=== PATIENT | female | born 1970 | race Caucasian/White ===

== ENCOUNTER → 2016-12-17 | Outpatient (CLI) | payer OTHER ==
[~2016-12-17] MED LIST: HYDR-5688 PO; IBUP-103 PO; OPTIRAY 320 IV PRN; OXYC1TAB3 PO; PENI-82 PO; RQP/2 PO; ZLF/100 PO
--- NOTE | 2016-12-17 10:56 | DIAGNOSTIC IMAGING REPORT ---
CT SCAN OF THE FACIAL BONES WITH IV CONTRAST CLINICAL HISTORY: Right jaw pain and swelling. Recent dental work. COMPARISON STUDY: CT of the brain dated 05/20/2012. TECHNIQUE: High-resolution CT scan of the facial bones is performed following the IV administration of 93 cc of Optiray 320. Images are reviewed in the axial, sagittal, and coronal planes. IV contrast was administered without complication. CT DOSE: 598.82 mGycm FINDINGS: The skeletal structures are well mineralized. There is no evidence of facial bone fracture. The bony orbits are intact and the orbital contents are within normal limits. The zygomatic arches, nasal bones, and pterygoid plates are preserved. The maxilla and mandible are intact. There are no layering blood products within the paranasal sinuses. The sinuses and mastoids are clear. The visualized calvarium and upper cervical spine are maintained. Partially imaged brain parenchyma is within normal limits. No significant periodontal disease is identified. The overlying soft tissues are within normal limits. No organized fluid collection is seen indicate abscess. No cervical lymphadenopathy is identified. IMPRESSION: 1. There is no evidence of facial bone fracture. 2. No significant periodontal disease is identified. 3. The overlying soft tissues are within normal limits. No organized fluid collection is identified to suggest abscess. Electronically signed by: Matias Solano M.D. 12/17/2016 10:54 AM Dictated Date/Time: 12/17/2016 10:41 AM
[2016-12-17 11:33] LABS: BASO % 0.5 %; BASO ABS # 0.04 K/uL (0-0.2); COMPLETE YES; EOS % 11.8 %; IG% 0.5 %; LYMPH % 35.3 %; LYMPH ABS # 3.04 K/uL (1.2-3.4); MEAN CELL VOLUME 84.8 fL (80-100); MEAN CORPUSCULAR HEMOGLOBIN 28.3 pg (25-34); MEAN CORPUSCULAR HGB CONC 33.3 g/dl (32-36); MEAN PLATELET VOLUME 9.5 fL (7.4-10.4); MONO % 7.8 %; NEUT % 44.1 %; PLATELET COUNT 366 K/uL (130-400); WHITE BLOOD COUNT 8.62 K/uL (4.8-10.8)
[2016-12-17 12:01] LABS: BLOOD UREA NITROGEN 19 mg/dl (7-18); BUN/CREATININE RATIO 23.8 (10-20); CALCIUM 8.5 mg/dl (8.5-10.1); CARBON DIOXIDE 26 mmol/L (21-32); CHLORIDE 104 mmol/L (98-107); CREATININE 0.78 mg/dl (0.60-1.20); GLUCOSE 98 mg/dl (70-99); SODIUM 138 mmol/L (136-145)
== END | disposition home or self-care (01) ==
LOC: C.CTS 09:04
PROVIDERS: ATTEND Family Medicine
DX: R22.0 Localized swelling, mass and lump, head (principal); R68.84 Jaw pain

== ENCOUNTER 2017-12-04 17:15 | Emergency (ER) | payer OTHER ==
[~2017-12-04] VITALS: Ht 165.1 cm; Wt 95.3 kg
[~2017-12-04 17:15] MED LIST changes: +GLC500 PO; -HYDR-5688 PO; -IBUP-103 PO; -OPTIRAY 320 IV PRN; -PENI-82 PO; -ZLF/100 PO
[2017-12-04 17:24] VITALS: TEMP 36.9; Ht 165.1 cm; Wt 95.3 kg
[2017-12-04] MEDS ORDERED: OXYCODONE HCL IR 5 MG TAB (IMMEDIATE RELEASE) PO STA (17:35)
[2017-12-04] MEDS ORDERED: ROPI4TAB4 PO (17:51)
[2017-12-04] MEDS ORDERED: SERT50TA PO (17:52)
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
[2017-12-04] MEDS ORDERED: OXYC1TAB3 PO (18:50)
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
[2017-12-04] MEDS ORDERED: OXYCODONE IR HOME PACK PO STA (18:51)
[2017-12-04 19:14] VITALS: BP 126/86; PULSE 65; O2SAT 100
== END 2017-12-04 19:16 | disposition home or self-care (01) ==
LOC: C.EDB 17:15 → C.EDD 19:16
DX: M25.512 Pain in left shoulder (principal); F31.9 Bipolar disorder, unspecified; M50.20 Other cervical disc displacement, unspecified cervical region; F32.9 Major depressive disorder, single episode, unspecified; M54.5 Low back pain; M54.6 Pain in thoracic spine; G25.81 Restless legs syndrome; Z79.84 Long term (current) use of oral hypoglycemic drugs

== ENCOUNTER 2024-02-16 16:32 | Inpatient (IN) ==
[2024-02-16 17:29] LABS: Basophils # (auto) 0.06 K/uL (0.00-0.20); Basophils % (auto) 0.6 %; Eosinophils # (auto) 0.63 K/uL (0.00-0.50); Eosinophils % (auto) 6.6 %; Hematocrit (blood only) 41.6 % (37.0-47.0); Hemoglobin 13.6 g/dl (12.0-16.0); Immature Granulocytes # (auto) 0.03 K/uL (0.01-0.20); Immature Granulocytes % (auto) 0.3 %; Lymphocytes # (auto) 2.96 K/uL (1.20-3.40); Mean Corpuscular Hemoglobin 27.1 pg (25.0-34.0); Mean Corpuscular Hgb Conc 32.7 g/dL (32.0-36.0); Mean Platelet Volume 9.7 fL (9.4-12.4); Monocytes # (auto) 0.57 K/uL (0.11-0.59); Neutrophils # (auto) 5.29 K/uL (1.40-6.50); Neutrophils % (auto) 55.5 %; Platelet Count 426 K/uL (130-400); RDW Coefficient of Variation 14.3 % (11.5-14.5); RDW Standard Deviation 43.3 fL (36.4-46.3); Red Blood Count 5.01 M/uL (4.20-5.40); White Blood Count 9.54 K/ul (4.8-10.8)
[2024-02-16 17:39] LABS: Albumin Globulin Ratio 1.4 (0.9-2); Albumin Level 4.1 gm/dl (3.4-5.0); BUN Creatinine Ratio 24.4 (10-20); Bilirubin,Total 0.4 mg/dl (0.2-1.0); Calcium 8.9 mg/dl (8.6-10.3); Creatinine Clr Calc Pharmacy 81.6 ml/min; Est GFR (African American) 88.1 ml/min; Est GFR (Non-African American) 76.1 ml/min; Potassium 4.2 mmol/L (3.5-5.1); Pregnancy Test, Serum Negative (Negative); Total Protein 7.1 gm/dl (6.0-8.3)
[2024-02-16] MEDS: ONDANSETRON INJ 2 MG/ML 2 ML VIAL IV STA ×2 (18:00→19:37)
--- NOTE | 2024-02-16 18:11 | Emergency Department Note ---
Impression & Plan Epigastric abdominal pain, Acute pancreatitis ED Provider Note Provider: Nick Pappas MD DATE OF SERVICE: 02/16/2024 CHIEF COMPLAINT: Abdominal pain, nausea HISTORY OF PRESENT ILLNESS: Patient is a 53-year-old female history of UTI/interstitial cystitis. Reports she has been having upper abdominal pain and flank and back pain with nausea over the past 3 weeks. Worsened today. Has had some diarrhea but subsided a couple days ago. Did take Toradol and Zofran earlier. 9 out of 10 pain. Not really keeping anything down. Seen in the office today and referred here. Feels very thirsty but has not passed out or fallen. No history of pancreatitis in the past. Received some IV Zofran in triage and this has been helpful. States her upper abdominal pain straight through to her back is sharp and feels like someone sitting with her back. 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 Head: normocephalic and atraumatic EYES: No injection, discharge or icterus. NECK: Trachea midline. ENT: Mucous membranes pink and somewhat tacky LUNGS: Airway patent. No retractions. Breath sounds clear HEART: Regular rate and rhythm. No chest wall tenderness ABDOMEN: Soft mild diffuse upper abdominal tenderness. SKIN: Acyanotic, warm, dry, without rashes EXTREMITIES: Without swelling, tenderness or deformity NEUROLOGICAL: No focal deficits. No aphasia. No facial droop or slurred speech. Ambulatory. EK beats. Normal sinus rhythm. No PVC or PAC. No acute ST segment elevation or depression with a QTc of 427. CONTINUOUS CARDIAC MONITORING: was ordered and showed a heart rate of 60s to 70s bpm in normal sinus rhythm Patient's laboratory studies and imaging reviewed. Differential includes Appendicitis, ovarian cyst, ovarian torsion, ectopic , TOA, PID, infections, diverticulitis, UTI, obstruction, mesenteric ischemia, aortic pathology, inflammatory bowel disease, renal colic, PUD, pancreatitis, biliary pathology, hernia, volvulus, constipation, as well as other pathologies. IMPRESSION/MEDICAL DECISION MAKING: Pain in the upper abdomen straight through the back seem consistent likely with pancreatitis. No trauma history of syncope. Will complete EKG troponin but less likely be cardiac in nature. Significant nausea and vomiting but diarrhea previously found his is resolved. Stellamarlys here from triage is helping. Given some IV fluids here as well as morphine for pain. No history of pancreatitis in the past. Lipase somewhat elevated on prior evaluation here on Tuesday. Sent from the office today. Repeat blood work obtained today without significant cytosis or anemia. No severe electrolyte abnormality or signs of renal dysfunction. No significant LFT or bilirubin abnormalities but lipase is elevated more today at 219. Negative testing. Will send for CT abdomen pelvis given the severity of her pain to exclude any significant evolution or other development of intra-abdominal pathology. CT report from radiology reviewed without significant acute findings noted. Patient will likely require hospitalization given the severity of her symptoms and failure of outpatient treatment over the past week. Seems likely pancreatitis no other acute processes are noted at this time. Hospitalist contacted. DIAGNOSIS: Acute pancreatitis, epigastric abdominal pain DISPOSITION: Hospitalist will evaluate Patient was agreeable with this plan. Past Med/Surg History Medical History (Updated 02/16/24 @ 19:59 by Nick Pappas M.D.) Kidney stone Anxiety Depression Urinary tract infection Surgical History History of tonsillectomy H/O spinal fusion History of nephrolithotomy with removal of calculi Family History Mother Cancer Ovarian Social History Smoking Status: Former smoker Hx Alcohol Use: Yes Hx Substance Use: Yes Preferred Language: [place]i Communication Ability: Effective Visual Impairment: No Limitations Hearing Ability: Normal Beliefs That Will Affect Care: None marital status: Current Living Situation: Spouse current occupational status: employed current occupation: [employer] Feels Safe at Home: Yes Diet: regular Allergies Allergies Allergy/AdvReac Type Severity Reaction Status Date / Time adhesive Allergy Intermediate Hives Verified 02/16/24 18:10 tramadol Allergy Intermediate BECAME Verified 02/16/24 18:10 VERY AGITATED zolpidem AdvReac Unknown "unconsciou Verified 02/16/24 18:10 s" Home Meds Home Medications Medication Instructions Recorded Confirmed ropinirole 2 mg tablet 4 mg PO HS 02/16/19 02/16/24 sertraline 100 mg tablet 200 mg PO QAM 02/16/19 02/16/24 dicyclomine 10 mg capsule 10 mg PO QID PRN Abdominal Pain 02/16/24 02/16/24 ketorolac 10 mg tablet 10 mg PO QID PRN Moderate Pain 02/16/24 02/16/24 (Scale Score 5-6) Previous Rx's Medication Instructions Recorded albuterol sulfate 90 mcg/actuation 2 inh inhalation Q4H PRN cough 11/28/23 aerosol inhaler #8.5 grams oxycodone 5 mg tablet 5 mg PO Q6H PRN pain #8 tabs 02/10/24 promethazine 25 mg tablet 25 mg PO Q6H PRN nausea and 02/10/24 vomiting #12 tabs Results & Data (ED) Vital Signs Vital Signs - 24 hr 02/16/24 16:43 02/16/24 17:57 02/16/24 18:58 Temperature 36.9 C Temperature Source Temporal Artery Scan Pulse Rate 79 71 Pulse Rate [Apical] 74 Respiratory Rate 19 18 Respiratory Effort / Characteristics Non-Labored Spontaneous Respiratory Depth Normal Respiratory Pattern Regular Blood Pressure 158/76 H Blood Pressure [Left Arm] 154/75 H Blood Pressure Mean 103 Blood Pressure Mean [Left Arm] 101 Blood Pressure Position [Left Arm] Lying Pulse Oximetry 97 98 Oxygen Delivery Method Room Air Room Air Sepsis Recent Fever Within 48 Hours No Sepsis New/Unexplained Change in Mental Status N/A Sepsis Action Taken by Nursing No Action Required 02/16/24 19:36 Temperature Temperature Source Pulse Rate Pulse Rate [Apical] 69 Respiratory Rate 18 Respiratory Effort / Characteristics Non-Labored Spontaneous Respiratory Depth Normal Respiratory Pattern Regular Blood Pressure Blood Pressure [Left Arm] 124/80 Blood Pressure Mean Blood Pressure Mean [Left Arm] 94 Blood Pressure Position [Left Arm] Lying Pulse Oximetry 95 Oxygen Delivery Method Room Air Sepsis Recent Fever Within 48 Hours Sepsis New/Unexplained Change in Mental Status Sepsis Action Taken by Nursing Laboratory Data 02/16/24 16:53 02/16/24 16:53 Lab Results 02/16/24 Range/Units 16:53 WBC 9.54 (4.8-10.8) K/ul RBC 5.01 (4.20-5.40) M/uL Hgb 13.6 (12.0-16.0) g/dl Hct 41.6 (37.0-47.0) % MCV 83.0 (80.0-100.0) fL MCH 27.1 (25.0-34.0) pg MCHC 32.7 (32.0-36.0) g/dL RDW Std Deviation 43.3 (36.4-46.3) fL RDW Coeff of Mamadou 14.3 (11.5-14.5) % Plt Count 426 H (130-400) K/uL MPV 9.7 (9.4-12.4) fL Immature Gran % (Auto) 0.3 % Neut % (Auto) 55.5 % Lymph % (Auto) 31.0 % [place] % (Auto) 6.0 % Eos % (Auto) 6.6 % Baso % (Auto) 0.6 % Neut # (Auto) 5.29 (1.40-6.50) K/uL Lymph # (Auto) 2.96 (1.20-3.40) K/uL [place] # (Auto) 0.57 (0.11-0.59) K/uL Eos # (Auto) 0.63 H (0.00-0.50) K/uL Baso # (Auto) 0.06 (0.00-0.20) K/uL Immature Gran # (Auto) 0.03 (0.01-0.20) K/uL Sodium 141 (136-145) mmol/L Potassium 4.2 (3.5-5.1) mmol/L Chloride 108 H (98-107) mmol/L Carbon Dioxide 26 (21-32) mmol/L Anion Gap 7 (3-11) BUN 21 (6-23) mg/dl Creatinine 0.86 (0.6-1.2) mg/dl Est Cr Clr Drug Dosing 81.6 ml/min Est GFR ( Amer) 88.1 ml/min Est GFR (Non-Af Amer) 76.1 ml/min BUN/Creatinine Ratio 24.4 H (10-20) Glucose 114 H (70-99(Fasting)) mg/dl Calcium 8.9 (8.6-10.3) mg/dl Total Bilirubin 0.4 (0.2-1.0) mg/dl AST 17 (13-39) U/L ALT 21 (7-52) U/L Alkaline Phosphatase 73 (34-104) U/L Troponin I High Sens 3.6 (0-14) pg/ml Total Protein 7.1 (6.0-8.3) gm/dl Albumin 4.1 (3.4-5.0) gm/dl Globulin 3.0 (2.5-4.0) gm/dl Albumin/Globulin Ratio 1.4 (0.9-2) Lipase 219 H (11-82) U/L HCG, Qual Negative (Negative) Administered Medications Discontinued Medications Lactated Ringer's (Lr) 1,000 mls @ 999 mls/hr IV .Q1H1M ONE Stop: 02/16/24 19:16 Last Admin: 02/16/24 19:37 Dose: 999 mls/hr Documented By: ROSSANA Sodium Chloride (Nss) 1,000 mls @ 999 mls/hr IV .Q1H1M ONE Stop: 02/16/24 19:16 Last Infusion: 02/16/24 19:31 Dose: Infused Documented By: Admin: 02/16/24 18:22 Dose: 999 mls/hr Documented By: ROSSANA Ioversol (Optiray 320 100ml) 90 ml IV ONCE ONE Stop: 02/16/24 19:19 Last Admin: 02/16/24 19:18 Dose: 90 ml Documented By: FAITH Morphine Sulfate (Morphine Sulfate 4 Mg/Ml 1 Ml Carp\\Vial) 4 mg IV NOW STA Stop: 02/16/24 18:18 Last Admin: 02/16/24 18:20 Dose: 4 mg Documented By: ROSSANA Morphine Sulfate (Morphine Sulfate 4 Mg/Ml 1 Ml Carp\\Vial) 4 mg IV NOW STA Stop: 02/16/24 19:34 Last Admin: 02/16/24 19:37 Dose: 4 mg Documented By: ROSSANA Ondansetron HCl (Ondansetron Inj 2 Mg/Ml 2 Ml Vial) 4 mg IV NOW STA Stop: 02/16/24 16:49 Last Admin: 02/16/24 18:00 Dose: 4 mg Documented By: NAVJOTK Ondansetron HCl (Ondansetron Inj 2 Mg/Ml 2 Ml Vial) 4 mg IV NOW STA Stop: 02/16/24 19:34 Last Admin: 02/16/24 19:37 Dose: 4 mg Documented By: ROSSANA Imaging Data Radiologist's Impression: Abdomen/Pelvis CT 02/16/24 18:16 Exam(s): CT ABDOMEN + PELVIS With Contrast IV Amt: 90 cc opti 320 EXAM: CT Abdomen and Pelvis With Intravenous Contrast CLINICAL HISTORY: Upper pain abd to back, elevated lipase. TECHNIQUE: Axial computed tomography images of the abdomen and pelvis with intravenous contrast. CTDI is 26.84 mGy and DLP is 1470.67 mGy-cm. Automated exposure control was utilized for the study. A dose lowering technique was utilized adhering to the principles of ALARA. CONTRAST: Patient received 90 cc opti 320 of IV contrast COMPARISON: CT abdomen and pelvis 02/10/2024 FINDINGS: Lung bases: Unremarkable. No mass. No consolidation. ABDOMEN: Liver: There is a simple appearing hepatic cyst, no follow-up is needed. Gallbladder and bile ducts: Unremarkable. No calcified stones. No ductal dilation. Pancreas: Unremarkable. No ductal dilation. No CT evidence of acute pancreatitis. Spleen: Unremarkable. No splenomegaly. Adrenals: Unremarkable. No mass. Kidneys and ureters: Unremarkable. No solid mass. No hydronephrosis. Stomach and bowel: Unremarkable. No obstruction. No mucosal thickening. PELVIS: Appendix: No findings to suggest acute appendicitis. Bladder: Unremarkable. No mass. Reproductive: An IUD is noted within an otherwise unremarkable uterus. ABDOMEN and PELVIS: Intraperitoneal space: Unremarkable. No free air. No significant fluid collection. Bones/joints: There are degenerative changes of the spine. No acute fracture. No dislocation. Soft tissues: Unremarkable. Vasculature: Unremarkable. No abdominal aortic aneurysm. Lymph nodes: Unremarkable. No enlarged lymph nodes. IMPRESSION: No CT evidence of acute pancreatitis. No acute finding. Electronically signed by: Myranda Krishnamurthy MD 02/16/24 19:53 PM Discharge Plan Visit Data Chief Complaint: Abdominal Pain Stated Complaint: ABD PAIN ED Provider: Nick Pappas Discharge Problem: Epigastric abdominal pain, Acute pancreatitis Patient Disposition: Being Evaluated by Hospitalist Forms Stand Alone Forms: My [employer] Prescriptions Prescriptions: No Action sertraline 100 mg Tablet 200 mg PO QAM ropinirole 2 mg tablet 4 mg PO HS albuterol sulfate 90 mcg/actuation HFA aerosol inhaler 2 inh inhalation Q4H PRN (Reason: cough) Qty: 8.5 1RF ketorolac 10 mg tablet 10 mg PO QID PRN (Reason: Moderate Pain (Scale Score 5-6)) dicyclomine 10 mg capsule 10 mg PO QID PRN (Reason: Abdominal Pain) promethazine 25 mg tablet 25 mg PO Q6H PRN (Reason: nausea and vomiting) Qty: 12 0RF oxycodone 5 mg tablet 5 mg PO Q6H PRN (Reason: pain) Qty: 8 0RF Referrals Referrals: Anupama Alba PA-C [Primary Care Provider] -
[2024-02-16] MEDS: MoRPHine SULFATE 4 MG/ML 1 ML CARP\\VIAL IV STA ×2 (18:20→19:37)
[2024-02-16] MEDS: SODIUM CHLORIDE 0.9% 1,000 ML IV ONE (18:22)
[2024-02-16 18:47] LABS: Troponin I High Sensitivity 3.6 pg/ml (0-14)
[2024-02-16] MEDS: OPTIRAY 320 100ml IV ONE (19:18)
[2024-02-16] MEDS: LACTATED RINGER'S 1,000 ML IV ONE ×2 (19:37→21:38)
--- NOTE | 2024-02-16 19:54 | CT Scan Report ---
Exam(s): CT ABDOMEN + PELVIS With Contrast IV Amt: 90 cc opti 320 EXAM: CT Abdomen and Pelvis With Intravenous Contrast CLINICAL HISTORY: Upper pain abd to back, elevated lipase. TECHNIQUE: Axial computed tomography images of the abdomen and pelvis with intravenous contrast. CTDI is 26.84 mGy and DLP is 1470.67 mGy-cm. Automated exposure control was utilized for the study. A dose lowering technique was utilized adhering to the principles of ALARA. CONTRAST: Patient received 90 cc opti 320 of IV contrast COMPARISON: CT abdomen and pelvis 02/10/2024 FINDINGS: Lung bases: Unremarkable. No mass. No consolidation. ABDOMEN: Liver: There is a simple appearing hepatic cyst, no follow-up is needed. Gallbladder and bile ducts: Unremarkable. No calcified stones. No ductal dilation. Pancreas: Unremarkable. No ductal dilation. No CT evidence of acute pancreatitis. Spleen: Unremarkable. No splenomegaly. Adrenals: Unremarkable. No mass. Kidneys and ureters: Unremarkable. No solid mass. No hydronephrosis. Stomach and bowel: Unremarkable. No obstruction. No mucosal thickening. PELVIS: Appendix: No findings to suggest acute appendicitis. Bladder: Unremarkable. No mass. Reproductive: An IUD is noted within an otherwise unremarkable uterus. ABDOMEN and PELVIS: Intraperitoneal space: Unremarkable. No free air. No significant fluid collection. Bones/joints: There are degenerative changes of the spine. No acute fracture. No dislocation. Soft tissues: Unremarkable. Vasculature: Unremarkable. No abdominal aortic aneurysm. Lymph nodes: Unremarkable. No enlarged lymph nodes. IMPRESSION: No CT evidence of acute pancreatitis. No acute finding. Electronically signed by: Myranda Krishnamurthy MD 02/16/24 19:53 PM
[2024-02-16] MEDS ORDERED: MoRPHine SULFATE 4 MG/ML 1 ML CARP\\VIAL IV PRN (20:38)
[2024-02-16] MEDS: oxyCODONE HCL IR 5 MG TAB (IMMEDIATE RELEASE) PO PRN (21:38)
[2024-02-16 22:33] LABS: Appearance Urine Clear (Clear); Bacteria Urine Automated Negative (Negative); Bilirubin Urine Negative (Negative); Blood Urine Negative (Negative); Color Urine Yellow; Epithelial Cell Urine Auto >30 /lpf (0-5); Glucose Urine UA Negative (Negative); Ketones Urine Negative (Negative); Leukocyte Esterase Urine Trace (Negative); Nitrite Urine Negative (Negative); Protein Urine Negative (Negative); RBC Urine Automated 0-4 /hpf (0-4); Specific Gravity Urine > 1.045 (1.000-1.030); Urobilinogen Urine Negative (Negative)
--- NOTE | 2024-02-16 22:49 | History & Physical Report ---
Date of Service February 16, 2024 Assessment & Plan (1) Abdominal pain: Plan: ? Protracted pancreatitis episode No obvious precipitants for now. Patient nontoxic. hx interstitial cystitis anxiety/mood disorder, stable Hyperglycemia rule out DM past tobacco abuse OBS GMF Analgesia Bowel rest for now GI consult re: persistent abdominal pain with lipase elevation Check hemoglobin A1c DVT prophylaxis with Lovenox subcu Full code Text document was generated using [employer] voice recognition software. It may contain grammatical or spelling errors. Kindly contact undersigned for clarification of any documentation item in question. History of Present Illness Chief Complaint: Worsening abdominal pain Primary Care Provider: Anupama Alba PA-C History obtained from patient and records. Medical history significant for interstitial cystitis, urolithiasis, anxiety/mood disorder, past tobacco abuse. 3 weeks ago, patient had achy epigastric pain associated with nausea vomiting, watery diarrhea symptoms. No fever, no chills. No dysuria symptoms. No recent out-of-town travel or antibiotics. Denies EtOH or fatty food intake. Not responsive to antacid. Patient seen at PCPs office 2 weeks ago. Lipase noted to be elevated on outpatient blood work. Stool workup negative. Patient was told she could have pancreatitis. Patient consulted ER 2 weeks ago for worsening symptoms. Normal pancreas, questionable mild bladder wall thickening on CT imaging. Minimal lipase elevation on blood work. Patient discharged home. Worsening achy abdominal pain following ER visit. Patient sent back to ER after seeing PCP at office today. Medical History as above Surgical History : Tonsillectomy, back surgery, urologic procedures D&C, uvulectomy, appendectomy, clavicle surgery Family History : Ovarian cancer, IBD, ALS Personal/Social history : Past tobacco abuse, occasional EtOH intake, marijuana store employee Allergies Allergy/AdvReac Type Severity Reaction Status Date / Time adhesive Allergy Intermediate Hives Verified 02/16/24 18:10 tramadol Allergy Intermediate BECAME Verified 02/16/24 18:10 VERY AGITATED zolpidem AdvReac Unknown "unconsciou Verified 02/16/24 18:10 s" Home Medications Medication Instructions Recorded Confirmed Type ropinirole 2 mg tablet 4 mg PO HS 02/16/19 02/16/24 History sertraline 100 mg tablet 200 mg PO QAM 02/16/19 02/16/24 History albuterol sulfate 90 mcg/actuation 2 inh inhalation Q4H PRN cough 11/28/23 02/16/24 Rx aerosol inhaler #8.5 grams oxycodone 5 mg tablet 5 mg PO Q6H PRN pain #8 tabs 02/10/24 02/16/24 Rx promethazine 25 mg tablet 25 mg PO Q6H PRN nausea and 02/10/24 02/16/24 Rx vomiting #12 tabs dicyclomine 10 mg capsule 10 mg PO QID PRN Abdominal Pain 02/16/24 02/16/24 History ketorolac 10 mg tablet 10 mg PO QID PRN Moderate Pain 02/16/24 02/16/24 History (Scale Score 5-6) Past Med/Surg History Medical History (Updated 02/16/24 @ 19:59 by Nick Pappas M.D.) Kidney stone Anxiety Depression Urinary tract infection Surgical History History of tonsillectomy H/O spinal fusion History of nephrolithotomy with removal of calculi Family History Mother Cancer Ovarian Social History Smoking Status: Never smoker Hx Alcohol Use: Yes Hx Substance Use: Yes Last Used Substance: Just Prior to Arrival Preferred Language: Bulgarian Communication Ability: Effective Visual Impairment: No Limitations Hearing Ability: Normal Probation Officer Required: No Beliefs That Will Affect Care: None marital status: Current Living Situation: Spouse current occupational status: employed current occupation: Finance Business Manager Other Information That Helps Us Care for You: No Feels Safe at Home: Yes Safety Concerns: Feels Safe At This Time Diet: regular Assistive Devices: None Review of Systems Review of Systems: As per HPI, all other systems reviewed and negative Physical Exam Physical Exam: GENERAL: Slightly uncomfortable, obese, no respiratory distress SKIN: Normal color, warm HEENT: [place] palpebral conjunctivae, no ptosis, dry buccal mucosa NECK : Supple, no tenderness CHEST : CTA, no tenderness HEART : RRR, no obvious murmurs ABDOMEN: Some distention, epigastric tenderness EXTREMITIES : Minimal LE swelling, no LE tenderness, no other conspicuous deformities noted NEUROLOGIC : Coherent, no facial asymmetry, no other gross focality Results & Data Results & Data Vital Signs (Past 12 Hours) Vital Signs Temp Pulse Pulse Resp BP BP Pulse Ox 02/16/24 22:39 64 18 116/63 94 02/16/24 22:01 65 18 120/79 93 02/16/24 19:36 69 18 124/80 95 02/16/24 18:58 71 02/16/24 17:57 74 18 154/75 H 98 02/16/24 16:43 36.9 C 79 19 158/76 H 97 O2 Del Method 02/16/24 22:39 Room Air 02/16/24 22:01 Room Air 02/16/24 19:36 Room Air 02/16/24 18:58 02/16/24 17:57 Room Air 02/16/24 16:43 Room Air Laboratory Results Laboratory Results WBC 9.54 K/ul (4.8-10.8) 02/16/24 16:53 RBC 5.01 M/uL (4.20-5.40) 02/16/24 16:53 Hgb 13.6 g/dl (12.0-16.0) 02/16/24 16:53 Hct 41.6 % (37.0-47.0) 02/16/24 16:53 MCV 83.0 fL (80.0-100.0) 02/16/24 16:53 MCH 27.1 pg (25.0-34.0) 02/16/24 16:53 MCHC 32.7 g/dL (32.0-36.0) 02/16/24 16:53 RDW Std Deviation 43.3 fL (36.4-46.3) 02/16/24 16:53 RDW Coeff of Mamadou 14.3 % (11.5-14.5) 02/16/24 16:53 Plt Count 426 K/uL (130-400) H 02/16/24 16:53 MPV 9.7 fL (9.4-12.4) 02/16/24 16:53 Immature Gran % (Auto) 0.3 % 02/16/24 16:53 Neut % (Auto) 55.5 % 02/16/24 16:53 Lymph % (Auto) 31.0 % 02/16/24 16:53 Trigg % (Auto) 6.0 % 02/16/24 16:53 Eos % (Auto) 6.6 % 02/16/24 16:53 Baso % (Auto) 0.6 % 02/16/24 16:53 Neut # (Auto) 5.29 K/uL (1.40-6.50) 02/16/24 16:53 Lymph # (Auto) 2.96 K/uL (1.20-3.40) 02/16/24 16:53 Trigg # (Auto) 0.57 K/uL (0.11-0.59) 02/16/24 16:53 Eos # (Auto) 0.63 K/uL (0.00-0.50) H 02/16/24 16:53 Baso # (Auto) 0.06 K/uL (0.00-0.20) 02/16/24 16:53 Immature Gran # (Auto) 0.03 K/uL (0.01-0.20) 02/16/24 16:53 Sodium 141 mmol/L (136-145) 02/16/24 16:53 Potassium 4.2 mmol/L (3.5-5.1) 02/16/24 16:53 Chloride 108 mmol/L (98-107) H 02/16/24 16:53 Carbon Dioxide 26 mmol/L (21-32) 02/16/24 16:53 Anion Gap 7 (3-11) 02/16/24 16:53 BUN 21 mg/dl (6-23) 02/16/24 16:53 Creatinine 0.86 mg/dl (0.6-1.2) 02/16/24 16:53 Est Cr Clr Drug Dosing 81.6 ml/min 02/16/24 16:53 Est GFR ( Amer) 88.1 ml/min 02/16/24 16:53 Est GFR (Non-Af Amer) 76.1 ml/min 02/16/24 16:53 BUN/Creatinine Ratio 24.4 (10-20) H 02/16/24 16:53 Glucose 114 mg/dl (70-99(Fasting)) H 02/16/24 16:53 Calcium 8.9 mg/dl (8.6-10.3) 02/16/24 16:53 Total Bilirubin 0.4 mg/dl (0.2-1.0) 02/16/24 16:53 AST 17 U/L (13-39) 02/16/24 16:53 ALT 21 U/L (7-52) 02/16/24 16:53 Alkaline Phosphatase 73 U/L (34-104) 02/16/24 16:53 Troponin I High Sens 3.6 pg/ml (0-14) 02/16/24 16:53 Total Protein 7.1 gm/dl (6.0-8.3) 02/16/24 16:53 Albumin 4.1 gm/dl (3.4-5.0) 02/16/24 16:53 Globulin 3.0 gm/dl (2.5-4.0) 02/16/24 16:53 Albumin/Globulin Ratio 1.4 (0.9-2) 02/16/24 16:53 Lipase 219 U/L (11-82) H 02/16/24 16:53 HCG, Qual Negative (Negative) 02/16/24 16:53 Urine Color Yellow 02/16/24 21:43 Urine Appearance Clear (Clear) 02/16/24 21:43 Urine pH 5.0 (4.5-7.5) 02/16/24 21:43 Ur Specific [place] > 1.045 (1.000-1.030) H 02/16/24 21:43 Urine Protein Negative (Negative) 02/16/24 21:43 Urine Glucose (UA) Negative (Negative) 02/16/24 21:43 Urine Ketones Negative (Negative) 02/16/24 21:43 Urine Blood Negative (Negative) 02/16/24 21:43 Urine Nitrite Negative (Negative) 02/16/24 21:43 Urine Bilirubin Negative (Negative) 02/16/24 21:43 Urine Urobilinogen Negative (Negative) 02/16/24 21:43 Ur Leukocyte Esterase Trace (Negative) H 02/16/24 21:43 Urine WBC (Auto) 5-10 /hpf (0-5) H 02/16/24 21:43 Urine RBC (Auto) 0-4 /hpf (0-4) 02/16/24 21:43 U Hyaline Cast (Auto) 1-5 /lpf (0-5) 02/16/24 21:43 U Epithel Cells (Auto) >30 /lpf (0-5) H 02/16/24 21:43 Urine Bacteria (Auto) Negative (Negative) 02/16/24 21:43 Impressions Abdomen/Pelvis CT 02/16/24 18:16 Exam(s): CT ABDOMEN + PELVIS With Contrast IV Amt: 90 cc opti 320 EXAM: CT Abdomen and Pelvis With Intravenous Contrast CLINICAL HISTORY: Upper pain abd to back, elevated lipase. TECHNIQUE: Axial computed tomography images of the abdomen and pelvis with intravenous contrast. CTDI is 26.84 mGy and DLP is 1470.67 mGy-cm. Automated exposure control was utilized for the study. A dose lowering technique was utilized adhering to the principles of ALARA. CONTRAST: Patient received 90 cc opti 320 of IV contrast COMPARISON: CT abdomen and pelvis 02/10/2024 FINDINGS: Lung bases: Unremarkable. No mass. No consolidation. ABDOMEN: Liver: There is a simple appearing hepatic cyst, no follow-up is needed. Gallbladder and bile ducts: Unremarkable. No calcified stones. No ductal dilation. Pancreas: Unremarkable. No ductal dilation. No CT evidence of acute pancreatitis. Spleen: Unremarkable. No splenomegaly. Adrenals: Unremarkable. No mass. Kidneys and ureters: Unremarkable. No solid mass. No hydronephrosis. Stomach and bowel: Unremarkable. No obstruction. No mucosal thickening. PELVIS: Appendix: No findings to suggest acute appendicitis. Bladder: Unremarkable. No mass. Reproductive: An IUD is noted within an otherwise unremarkable uterus. ABDOMEN and PELVIS: Intraperitoneal space: Unremarkable. No free air. No significant fluid collection. Bones/joints: There are degenerative changes of the spine. No acute fracture. No dislocation. Soft tissues: Unremarkable. Vasculature: Unremarkable. No abdominal aortic aneurysm. Lymph nodes: Unremarkable. No enlarged lymph nodes. IMPRESSION: No CT evidence of acute pancreatitis. No acute finding. Electronically signed by: Myranda Krishnamurthy MD 02/16/24 19:53 PM Gallbladder ultrasound: Possible mild diffuse fatty liver, otherwise unremarkable right upper quadrant ultrasound. Diagnostic Findings EKG as per my interpretation : Rate 65, NSR, normal axis, T wave abnormalities septal leads (1) Abdominal pain Abdominal location: upper abdomen, unspecified Qualified Code(s): R10.10 - Upper abdominal pain, unspecified
[2024-02-16] MEDS ORDERED: ACETAMINOPHEN 325 MG TAB PO PRN (22:51)
[2024-02-16] MEDS ORDERED: KETOROLAC TROMETHAMINE 15 MG/ML VIAL IV PRN (22:51)
[2024-02-16] MEDS ORDERED: LORazepam 0.5 MG TAB PO PRN (22:51)
--- NOTE | 2024-02-16 23:13 | Ultrasound Report ---
Exam(s): US GALLBLADDER EXAM: US Abdomen Limited, Gallbladder CLINICAL HISTORY: Reason for exam: abd pain. TECHNIQUE: Real-time ultrasound of the right upper quadrant with image documentation. COMPARISON: None. FINDINGS: Limitations: Exam is limited due to gas artifact in the bowel. Liver: There is mild diffuse increased echogenicity throughout the liver suggestive of fatty infiltration. The liver measures 16.09 cm. The main portal vein reveals hepatopedal flow. Gallbladder: Moody sign is indeterminate due to prior medication. The gallbladder wall measures 2.4 mm. No gallstones. Common bile duct: The common bile duct measures 4.3 mm. No stones. No dilation. Pancreas: The pancreas is obscured. Right kidney: The right kidney measures 9.5 cm. IMPRESSION: Possible mild diffuse fatty liver, otherwise unremarkable right upper quadrant ultrasound. Electronically signed by: Sheri Haji MD 02/16/24 23:11 PM
[2024-02-17] MEDS: PROMETHAZINE HCL 12.5 MG in SODIUM CHLORIDE 0.9% 50 ML IV PRN (00:20)
[2024-02-17] MEDS: KETOROLAC 30 MG/ML VIAL IV ONE (00:20)
[2024-02-17] MEDS: rOPINIRole HCL 2 MG TABLET PO SCH (00:34)
[2024-02-17] MEDS: LACTATED RINGER'S 1,000 ML IV SCH (02:57)
[2024-02-17] MEDS: ONDANSETRON INJ 2 MG/ML 2 ML VIAL IV STA ×3 (03:57→22:20)
[2024-02-17] MEDS: MoRPHine SULFATE 2 MG/ML CARP IV PRN (03:57)
[2024-02-17] MEDS ORDERED: ACETAMINOPHEN 500 MG TAB PO PRN (05:20)
[2024-02-17 06:26] LABS: Basophils # (auto) 0.04 K/uL (0.00-0.20); Basophils % (auto) 0.7 %; Eosinophils # (auto) 0.65 K/uL (0.00-0.50); Eosinophils % (auto) 11.2 %; Hemoglobin 11.2 g/dl (12.0-16.0); Immature Granulocytes # (auto) 0.01 K/uL (0.01-0.20); Immature Granulocytes % (auto) 0.2 %; Lymphocytes # (auto) 2.57 K/uL (1.20-3.40); Lymphocytes % (auto) 44.2 %; Mean Corpuscular Hemoglobin 26.7 pg (25.0-34.0); Mean Corpuscular Volume 83.3 fL (80.0-100.0); Mean Platelet Volume 9.8 fL (9.4-12.4); Monocytes # (auto) 0.51 K/uL (0.11-0.59); Monocytes % (auto) 8.8 %; Neutrophils # (auto) 2.04 K/uL (1.40-6.50); Neutrophils % (auto) 34.9 %; Platelet Count 329 K/uL (130-400); RDW Coefficient of Variation 14.3 % (11.5-14.5); RDW Standard Deviation 43.6 fL (36.4-46.3); White Blood Count 5.82 K/ul (4.8-10.8)
[2024-02-17 06:59] LABS: Albumin Globulin Ratio 1.6 (0.9-2); Albumin Level 3.3 gm/dl (3.4-5.0); BUN Creatinine Ratio 19.4 (10-20); Bilirubin,Total 0.5 mg/dl (0.2-1.0); Creatinine Clr Calc Pharmacy 105.5 ml/min; Est GFR (African American) 114.7 ml/min; Globulin 2.1 gm/dl (2.5-4.0); Potassium 4.1 mmol/L (3.5-5.1); Total Protein 5.4 gm/dl (6.0-8.3)
[2024-02-17 07:51] LABS: Estimated Average Glucose 146 mg/dl; Hemoglobin A1C 6.7 % (4.5-5.6)
[2024-02-17] MEDS: SERTRALINE HCL 100 MG TABLET PO SCH (08:10)
[2024-02-17] MEDS: ENOXAPARIN INJ 40 MG/0.4 ML SYR SQ SCH (08:10)
--- NOTE | 2024-02-17 08:35 | Gastrointestinal Consultation ---
Date of Consultation February 17, 2024 Assessment & Plan (1) Vomiting and diarrhea: Pt is a 53 yo female w abd pain, n/v, diarrhea wo GI Bleeding; noted to have elevated lipase, normal LFTs. US and CT abd/pelvis wo signs of gallbladder disease, nor pancreatitis. She does have fatty liver. + marijuana use. - NPO - Plan for EGD eval today by Dr. Carpenter - IVF support w LR - Repeat stool studies to r/o infections - Implications of marijuana use which may cause abd pain, n/v have been discussed w pt. - Bentyl prn abd pain/cramping - Zofran prn n/v Supervising Physician Co-Signing Physician Notes I saw and evaluated the patient she presented with abdominal pain and a mild elevation of her serum lipase without evidence of pancreatitis on CT scan. Given the discrepancy in imaging findings we will proceed with upper endoscopy for further evaluation today. Would recommend continued IV hydration and monitoring perhaps the patient's symptoms are related to use of cannabis. If the upper endoscopy is negative we will likely recommend an outpatient endoscopic ultrasound for further evaluation of the biliary tree. History of Present Illness Reason for Consultation: Abdominal pain Requesting Physician: Dr. Evelio Coleman Attending Physician: Dr. Alyson Carpenter History of Present Illness Pt is a 53 yo female w PMHx of interstitial cystitis, urolithiasis, anxiety/mood disorder, past tobacco abuse, marijuana use who presented yesterday w c/o epigastric pain, n/v, diarrhea x3 weeks. She denies associated fever, chills, CP, SOB, GI bleeding symptoms. Denies any recent travels, antibiotics. She was noted to have elevated lipase in OP blood work, previous stool workup negative. Labs on admission showed normal LFTs, lipase >200. TG 110. US abd showed fatty liver otherwise unremarkable wo signs of gallstones. CT abd/pelvis wo evidence of pancreatitis. 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 Denies family hx of GI malignancy, pancreas disease Denies hx of abdominal surgery No prior hx of EGD or colonoscopy Allergies Allergy/AdvReac Type Severity Reaction Status Date / Time adhesive Allergy Intermediate Hives Verified 02/17/24 08:56 tramadol Allergy Intermediate BECAME Verified 02/17/24 08:56 VERY AGITATED zolpidem AdvReac Unknown "unconsciou Verified 02/17/24 08:56 s" Home Medications Medication Instructions Recorded Confirmed Type ropinirole 2 mg tablet 4 mg PO HS 02/16/19 02/16/24 History sertraline 100 mg tablet 200 mg PO QAM 02/16/19 02/16/24 History albuterol sulfate 90 mcg/actuation 2 inh inhalation Q4H PRN cough 11/28/23 02/16/24 Rx aerosol inhaler #8.5 grams oxycodone 5 mg tablet 5 mg PO Q6H PRN pain #8 tabs 02/10/24 02/16/24 Rx promethazine 25 mg tablet 25 mg PO Q6H PRN nausea and 02/10/24 02/16/24 Rx vomiting #12 tabs dicyclomine 10 mg capsule 10 mg PO QID PRN Abdominal Pain 02/16/24 02/16/24 History ketorolac 10 mg tablet 10 mg PO QID PRN Moderate Pain 02/16/24 02/16/24 History (Scale Score 5-6) Patient History Medical History Kidney stone Anxiety Depression Urinary tract infection Surgical History History of tonsillectomy H/O spinal fusion History of nephrolithotomy with removal of calculi Family History Mother Cancer Ovarian Social History Smoking Status: Never smoker Hx Alcohol Use: Yes Hx Substance Use: Yes Last Used Substance: Just Prior to Arrival Preferred Language: Nigerian Communication Ability: Effective Visual Impairment: No Limitations Hearing Ability: Normal General Manager Required: No Beliefs That Will Affect Care: None marital status: Current Living Situation: Spouse current occupational status: employed current occupation: Sales Development Executive Other Information That Helps Us Care for You: No Feels Safe at Home: Yes Safety Concerns: Feels Safe At This Time Diet: regular Assistive Devices: None Review of Systems Review of Systems: All systems reviewed & are unremarkable except as noted in HPI & below Physical Exam Constitutional: WD/WN, vitals as above well groomed, cooperative and comfortable Eyes: PERRL, conjunctivae normal, anicteric sclerae ENMT: external ear and nose normal, oropharynx normal Respiratory: normal respiratory effort, lungs clear to auscultation Cardiovascular: RRR, no murmur, no edema Gastrointestinal (Abdomen): Soft, diffuse tenderness, BS hypoactive Skin: no rashes, warm and dry no jaundice Psychiatric: A+Ox3, euthymic affect Lymphatic: no lymphedema Results & Data Vital Signs (Past 12 Hours) Vital Signs Temp Pulse Pulse Resp BP BP Pulse Ox 02/17/24 07:53 36.4 C L 55 L 16 146/87 H 93 02/17/24 00:01 02/16/24 23:58 36.7 C 57 L 16 159/90 H 99 02/16/24 23:40 62 18 121/62 95 02/16/24 23:01 71 02/16/24 22:39 64 18 116/63 94 02/16/24 22:01 65 18 120/79 93 O2 Del Method 02/17/24 07:53 Room Air 02/17/24 00:01 Room Air 02/16/24 23:58 Room Air 02/16/24 23:40 Room Air 02/16/24 23:01 02/16/24 22:39 Room Air 02/16/24 22:01 Room Air
--- NOTE | 2024-02-17 09:10 | Anesthesiology Consultation ---
Date of Service February 17, 2024 Assessment & Plan Chart Review Chart Review: Acceptable Risk for Surgery and Patient NOT seen in Pre Admission Testing Consults Requested none ASA ASA2 Proposed Anesthesia Anesthesia Type: MAC Risk / Benefits Reviewed With: PT / POA / Parent / Guardian, Accepts Plan and Informed Consent Obtained History Surgery Operation Date: 02/17/24 16:25 Proposed Procedures p Esophagogastroduodenoscopy Dr Jayden Carpenter, DO Height/Weight Height: 5 ft 4 in Weight: 94.1 kg Allergies Allergy/AdvReac Type Severity Reaction Status Date / Time adhesive Allergy Intermediate Hives Verified 02/17/24 08:56 tramadol Allergy Intermediate BECAME Verified 02/17/24 08:56 VERY AGITATED zolpidem AdvReac Unknown "unconsciou Verified 02/17/24 08:56 s" Medications Home Medications Medication Instructions Recorded Confirmed Last Taken ropinirole 2 mg tablet 4 mg PO HS 02/16/19 02/16/24 11/27/23 sertraline 100 mg tablet 200 mg PO QAM 02/16/19 02/16/24 11/27/23 albuterol sulfate 90 mcg/actuation 2 inh inhalation Q4H PRN cough 11/28/23 02/16/24 Unknown aerosol inhaler #8.5 grams oxycodone 5 mg tablet 5 mg PO Q6H PRN pain #8 tabs 02/10/24 02/16/24 Unknown promethazine 25 mg tablet 25 mg PO Q6H PRN nausea and 02/10/24 02/16/24 Unknown vomiting #12 tabs dicyclomine 10 mg capsule 10 mg PO QID PRN Abdominal Pain 02/16/24 02/16/24 Unknown ketorolac 10 mg tablet 10 mg PO QID PRN Moderate Pain 02/16/24 02/16/24 Unknown (Scale Score 5-6) Active Medications Generic Name Dose Route Start Last Admin Trade Name Freq PRN Reason Stop Dose Admin Enoxaparin Sodium 40 mg 02/17/24 09:00 02/17/24 08:10 Enoxaparin Inj 40 Mg/0.4 Ml Syr SQ 03/18/24 08:59 40 mg QAM VENITA Administration Promethazine HCl 12.5 mg/ 50.5 mls @ 202 mls/hr 02/16/24 20:38 02/17/24 00:35 Sodium Chloride IV 03/17/24 20:37 Infused Q6H PRN Infusion Nausea And Vomiting Lactated Ringer's 1,000 mls @ 200 mls/hr 02/17/24 02:00 02/17/24 08:48 Lr IV 02/18/24 01:59 0 mls/hr .Q5H VENITA Infusion Morphine Sulfate 2 mg 02/17/24 00:02 02/17/24 03:57 Morphine Sulfate 2 Mg/Ml Carp IV 03/02/24 00:01 2 mg Q6H PRN Administration Pain Oxycodone HCl 5 - 10 mg 02/16/24 20:38 02/16/24 21:38 Oxycodone Hcl Ir 5 Mg Tab (Immediate Release) PO 03/01/24 20:37 10 mg QID PRN Administration Pain Ropinirole HCl 4 mg 02/16/24 23:53 02/17/24 00:34 Ropinirole Hcl 2 Mg Tablet PO 03/17/24 23:52 Not Given HS VENITA Sertraline HCl 200 mg 02/17/24 09:00 02/17/24 08:12 Sertraline Hcl 100 Mg Tablet PO 03/18/24 08:59 Not Given QAM VENITA NPO Date Last Intake of Fluids: 02/16/24 Time Last Intake of Fluids: 23:00 Date Last Intake of Solids: 02/15/24 Past Medical History Medical History Kidney stone Anxiety Depression Urinary tract infection Exercise / Class Metabolic Activity II 4-5 Yardwork/Stairs/Walk up hill Past Family History Family History Mother Cancer Ovarian Past Surgical History Surgical History History of tonsillectomy H/O spinal fusion History of nephrolithotomy with removal of calculi Past Anesthesia History No Hx of Anesthesia Complications and No Family Hx of Anesthesia Complications History of PONV No Hx of PONV and No Hx of Motion Sickness Social History Smoking Status: Never smoker Hx Alcohol Use: Yes alcohol intake frequency: holidays/special occasions only Hx Substance Use: Yes substance use type: marijuana Last Used Substance: Just Prior to Arrival Physical Exam Vital Signs Last Vital Signs Temp 36.4 C L 02/17/24 08:57 Pulse 57 L 02/17/24 08:57 Resp 16 02/17/24 08:57 BP 168/103 H 02/17/24 08:57 Pulse Ox 97 02/17/24 08:57 O2 Del Method Room Air 02/17/24 08:57 ENMT Mouth: no dentition abnormality Thyromental Distance: > or= 3.5 Finger Breadths Mallampati Class: II Neck normal visual inspection Respiratory normal respiratory effort Auscultation: lungs clear to auscultation bilaterally Cardiovascular Rate/Rhythm: regular rate and regular rhythm Psychiatric Orientation: alert Testing Laboratory Results 02/17/24 05:46 02/17/24 05:46 Hemoglobin A1c 6.7 % (4.5-5.6) H 02/17/24 05:46 Urine Color Yellow 02/16/24 21:43 Urine Appearance Clear (Clear) 02/16/24 21:43 Urine pH 5.0 (4.5-7.5) 02/16/24 21:43 Ur Specific [place] > 1.045 (1.000-1.030) H 02/16/24 21:43 Urine Protein Negative (Negative) 02/16/24 21:43 Urine Glucose (UA) Negative (Negative) 02/16/24 21:43 Urine Ketones Negative (Negative) 02/16/24 21:43 Urine Nitrite Negative (Negative) 02/16/24 21:43 Ur Leukocyte Esterase Trace (Negative) H 02/16/24 21:43 Urine WBC (Auto) 5-10 /hpf (0-5) H 02/16/24 21:43 Urine RBC (Auto) 0-4 /hpf (0-4) 02/16/24 21:43 U Hyaline Cast (Auto) 1-5 /lpf (0-5) 02/16/24 21:43 U Epithel Cells (Auto) >30 /lpf (0-5) H 02/16/24 21:43 Urine Bacteria (Auto) Negative (Negative) 02/16/24 21:43
--- NOTE | 2024-02-17 09:26 | Communication Note ---
Date of Service: February 17, 2024 The patient underwent upper endoscopy today for her history of nausea and vomiting. The patient was found to have mild gastritis, would recommend omeprazole for Protonix 40 mg/day. With regard to the elevation of her serum lipase would recommend continued IV hydration overnight and advancing her diet as tolerated in 24 hours. I wonder if the mechanism of her present symptoms is related to cannabis consumption. Would recommend further evaluation with a urine tox screen. We can plan for outpatient endoscopic ultrasound Protonix 40 mg Cannabis cessation recommended Continue with IV hydration Please call with any questions or concerns GI to sign off
--- NOTE | 2024-02-17 09:29 | GI REPORT ---
Patient Name: Cassi Mejia Procedure Date: 02/17/2024 9:16 AM Date of : 1970 Admit Type: Inpatient Age: 53 Gender: Female Attending MD: Alyson Carpenter DO, Procedure: Upper GI endoscopy Providers: Alyson Carpenter DO Referring MD: Anupama Alba Indications: Epigastric abdominal pain Medicines: Monitored Anesthesia Care Complications: No immediate complications. Estimated blood loss: Minimal. Estimated Blood Loss: Estimated blood loss: none. Procedure: Pre-Anesthesia Assessment: - Prior to the procedure, a History and Physical was performed, and patient medications, allergies and sensitivities were reviewed. The patient's tolerance of previous anesthesia was reviewed. - The risks and benefits of the procedure and the sedation options and risks were discussed with the patient. All questions were answered and informed consent was obtained. - Patient identification and proposed procedure were verified prior to the procedure by the physician, the nurse and the construction project assistant. The procedure was verified in the procedure room. - Pre-procedure physical examination revealed no contraindications to sedation. - ASA Grade Assessment: II - A patient with mild systemic disease. - After reviewing the risks and benefits, the patient was deemed in satisfactory condition to undergo the procedure. - The anesthesia plan was to use monitored anesthesia care (MAC). - Immediately prior to administration of medications, the patient was re-assessed for adequacy to receive sedatives. - The heart rate, respiratory rate, oxygen saturations, blood pressure, adequacy of pulmonary ventilation, and response to care were monitored throughout the procedure. - The physical status of the patient was re-assessed after the procedure. After obtaining informed consent, the endoscope was passed under direct vision. Throughout the procedure, the patient's blood pressure, pulse, and oxygen saturations were monitored continuously. The Endoscope was introduced through the mouth, and advanced to the third part of duodenum. The upper GI endoscopy was accomplished without difficulty. The patient tolerated the procedure well. Findings: The examined esophagus was normal. Diffuse mild inflammation characterized by congestion (edema), erythema and granularity was found in the entire examined stomach. Biopsies were taken with a cold forceps for histology. The pathology specimen was placed into Bottle B. Estimated blood loss was minimal. The examined duodenum was normal. Biopsies were taken with a cold forceps for histology. The pathology specimen was placed into Bottle A. Estimated blood loss was minimal. Impression: - Normal esophagus. - Gastritis. Biopsied. - Normal examined duodenum. Biopsied. Recommendation: - Return patient to hospital may for ongoing care. - Use Protonix (pantoprazole) 40 mg PO daily for 3 months. - Await pathology results. - Would suggest discontinuation of Cannibis Consumption - Outpatient EUS to be scheduled. Alyson Carpenter D.O. Alyson Carpenter, DO 02/17/2024 9:29:31 AM This report has been signed electronically. Note Initiated On: 02/17/2024 9:16 AM Number of Addenda: 0 I attest to the content of the Intraoperative Record and orders documented therein, exceptions below {[id number]}
--- NOTE | 2024-02-17 10:02 | Anesthesiology Progress Note ---
Date of Service February 17, 2024 Anesthesia Post Procedure Vital Signs Vital Signs: Temp Pulse Pulse Resp BP BP Pulse Ox 02/17/24 09:56 58 L 16 111/65 94 02/17/24 09:41 55 L 16 112/60 94 02/17/24 09:26 58 L 12 85/48 L 93 02/17/24 08:57 36.4 C L 57 L 16 168/103 H 97 02/17/24 07:53 36.4 C L 55 L 16 146/87 H 93 02/17/24 00:01 02/16/24 23:58 36.7 C 57 L 16 159/90 H 99 02/16/24 23:40 62 18 121/62 95 02/16/24 23:01 71 02/16/24 22:39 64 18 116/63 94 02/16/24 22:01 65 18 120/79 93 02/16/24 19:36 69 18 124/80 95 02/16/24 18:58 71 02/16/24 17:57 74 18 154/75 H 98 02/16/24 16:43 36.9 C 79 19 158/76 H 97 O2 Del Method 02/17/24 09:56 Room Air 02/17/24 09:41 Room Air 02/17/24 09:26 Room Air 02/17/24 08:57 Room Air 02/17/24 07:53 Room Air 02/17/24 00:01 Room Air 02/16/24 23:58 Room Air 02/16/24 23:40 Room Air 02/16/24 23:01 02/16/24 22:39 Room Air 02/16/24 22:01 Room Air 02/16/24 19:36 Room Air 02/16/24 18:58 02/16/24 17:57 Room Air 02/16/24 16:43 Room Air Pain Intensity Right Abdomen: Pain Intensity: 6 Transfer of Care Handoff Completed per policy Notes Mental Status: alert / awake / arousable Patient Amnestic to Procedure: Yes Nausea / Vomiting: adequately controlled Pain: adequately controlled Airway Patency, RR, SpO2: stable & adequate BP & HR: stable & adequate Hydration State: stable & adequate Anesthetic Complications: no major complications apparent
[2024-02-17] MEDS: LIDOCAINE 2% 2 ML VIAL/AMP(20MG/ML) INFIL ONE (10:58)
[2024-02-17] MEDS: PANTOprazole 40 MG TAB PO SCH (10:59)
[2024-02-17] MEDS: DEXAMETHASONE SOD INJ 4 MG/ML VIAL ONE (10:59)
[2024-02-17] MEDS: ONDANSETRON INJ 2 MG/ML 2 ML VIAL ONE (10:59)
[2024-02-17] MEDS: PROPOFOL IV EMULSION 10 MG/ML 20 ML VIAL IV ONE (10:59)
--- NOTE | 2024-02-17 12:14 | Electrocardiogram Report ---
Test Reason : Blood Pressure : / mmHG Vent. Rate : 064 BPM Atrial Rate : 064 BPM P-R Int : 164 ms QRS Dur : 082 ms QT Int : 414 ms P-R-T Axes : 053 037 025 degrees QTc Int : 427 ms Normal sinus rhythm Normal ECG When compared with ECG of 10-FEB-2024 13:44, No significant change was found Confirmed by Michael Dumont ([id number]) on 02/17/2024 12:13:37 PM Referred By: Anupama Alba Confirmed By:Phillip Dumont
--- OUTSIDE RECORDS SUMMARY | 2024-02-17 13:13 | External Medical Summary | Summary of Care ---
Author Name Unknown Organization [facility] Address [address] [address] Phone [phone] Care Team Providers Care Plastic Press Operator Name Role Phone Anupama Alba PA-C Primary Care Provider [phone] Reason for Visit * Reason Onset Date Comments Advice 02/13/2024 Emergency Department Follow-Up 02/13/2024 Encounter Details Date Type Department Care Team (Late st Contact Info) Description 02/13/2024 Telephone Family Practice [facility] [place] [address] [facility] [place] [address] Anupama Alba PA-C [address] [facility] [place] [address] Advice; Emergency Department Follow-Up Allergies Active Allergy Reactions Criticality Noted Date Comments Franciscoien Cr 11/23/2020 Other Reaction(s): "unconscious" Latex 04/22/2021 Adhesive Tape Hives 06/27/2008 Latex tape only Tramadol 08/03/2011 "nightmares" and "body spasms" documented as of this encounter (statuses as of 02/15/2024) Medications Medication Sig Dispensed Refills Start Date End Date Status Ventolin HFA 108 (90 Base) MCG/ACT Inhalation Aerosol SolutionIndications: Fever, unspecified fever cause,Viral URI with cough Inhale by mouth 2 Puffs every 4 hours as needed for Wheezing. 18 g 0 07/15/2022 Active Eszopiclone 3 MG Oral Tablet (Lunesta)Indications :Primary insomnia Take 1 Tablet by mouth at bedtime. 30 Tablet 0 12/24/2022 Active Additional Information Patient not taking.Reported on 05/13/2023 Sertraline HCl 100 MG Oral Tablet (Zoloft)Indications: Major depressive disorder, recurrent episode, moderate (HCC),Generalized anxiety disorder,Panic disorder without agoraphobia Take 2 Tablets by mouth in the morning. 60 Tablet 5 09/08/2023 Active rOPINIRole HCl 2 MG Oral Tablet (Requip) TAKE 2 TABLETS BY MOUTH AT BEDTIME 60 Tablet 4 01/04/2024 Active Ondansetron 8 MG Oral Tablet Disintegrating (Zofran)Indications: Nausea and vomiting, unspecified vomiting type Place 1 Tablet on tongue every 8 hours as needed for Nausea. dissolve on tongue. 30 Tablet 1 02/08/2024 Active Dicyclomine HCl 10 MG Oral Capsule (Bentyl)Indications: Abdominal pain, generalized Take 1 Capsule by mouth 4 times a day as needed for Pain. For abdominal pain 60 Capsule 1 02/08/2024 Active Ketorolac Tromethamine 10 MG Oral Tablet (Toradol) Take 1 Tablet by mouth 4 times a day as needed for Pain, Moderate. Do not take for longer than 5 days 20 Tablet 0 02/13/2024 Active documented as of this encounter (statuses as of 02/15/2024) Active Problems Problem Noted Date Diagnosed Date Major depressive disorder, recurrent episode, mo derate 02/08/2024 Interstitial cystitis 03/09/2022 Recurrent major depressive disorder 01/04/2022 Encounter for long-term (current) use of medicat ions 10/01/2011 Overview: ICD-10 update of inactive term Postlaminectomy syndrome of thoracic region 02/2011 Backache 03/27/2011 SLOW TRANSIT OBSTIPATION 03/27/2011 Presence of intrauterine contraceptive device Overview: Inserted 01/30/10 - Mirena Excessive menstruation 08/14/2009 Overview: Endometrial biopsy:07/06 Benign early proliferative endometrium Pap 07/06 - Endo cells TSH wnl 06/05, Hg wnl. Major depressive disorder Overview: ICD-10 update of inactive term Restless leg syndrome Displacement of lumbar inter vertebral disc without myelopathy documented as of this encounter (statuses as of 02/15/2024) Resolved Problems Problem Noted Date Diagnosed Date Resolved Date Pathologic fracture of vertebrae 03/28/2023 03/28/2023 Pathologic fracture of vertebrae 03/18/2023 03/18/2023 documented as of this encounter (statuses as of 02/15/2024) Immunizations Name Administration Dates Next Due PPD 07/31/2011 Rabies Vaccine Diploid cell (Imovax) 06/23/2016, 06/18/2016 Seasonal Influenza, Split, I IV3, With Preserve, Inj 08/24/2011,08/31/2010,08/28/2009 TD - Tetanus/Diptheria (ADULT) 11/28/2004 TDAP (age 10 and older)(Boostrix) 06/18/2016 TDAP (age 11 and older)(Adacel) 07/24/2010 documented as of this encounter Social History Tobacco Use Types Packs/Day Years Used Date Smoking Tobacco: Never Smokeless Tobacco: Never Comments:socially in college Alcohol Use Standard Drinks/Week Comments Yes 1 (1 standard drink = 0.6 oz pur e alcohol) Very rarely Sex and Gender Information Value Date Recorded Sex Assigned at Not on file Gender Identity Not on file Sexual Orientation Not on file Job Start Date Occupation Industry Not on file Not on file Not on file documented as of this encounter Miscellaneous Notes * Telephone Encounter - Anupama Alba PA-C - 02/15/2024 7:02 PM EDT Message just received, how is she feeling now? * Telephone Encounter - Ella Drake LPN - 02/15/2024 2:42 PM EDT Pt calling, her abd pain and nausea are back. This morning before work she ate half a plain bagel. She felt she could handle increased diet as she previously was only eating bland soft food like vanilla pudding and clear liquids. She just threw up and now has intense pain abd, feels like stabbing. Last toradol and zofran taken about an hour ago. No fever, bms are normal. She is headed home from work. She would like call back with recommendations for pain relief. Please advise. Ph. [phone] * Telephone Encounter - Tashia Chapman CPhT - 02/15/2024 2:41 PM EDT Patient calling regarding ongoing with with Pancreatitis, warm transferred to nurse line. Thank you, Tashia Chapman, Production Broacher [facility] (Formerly Telepharmacy) 02/15/2024, 2:41 PM * Telephone Encounter - Marielle Patiño LPN - 02/14/2024 11:05 AM EDT Called patient and made aware. Still having extreme nausea. Pain fluctuates and mostly in her back.. is going to metal pickling equipment operator medication today * Telephone Encounter - Anupama Alba PA-C - 02/13/2024 7:14 PM EDT Given a script of toradol. Needs to take with food. * Telephone Encounter - Luzma Lee LPN - 02/13/2024 4:59 PM EDT ER notes printed and placed on February's desk for review. * Telephone Encounter - Nubia Mg OSA - 02/13/2024 4:45 PM EDT Patient called was seen in the er 02/10/2024 for acute pancreatitis. Patient states that she was given phenergan, 8 tablets of oxycontin. States that she was given zofran and antispasm for her stomach. Patient states that she is currently in a considerable amount of cramping and pain in the stomach and is unsure what to do. Patient scheduled for a er follow up visit on 02/16/24. Patient states thatshe took all of the oxy and would like to know if theres is anything else she can take or be prescribed till her visit . . documented in this encounter Plan of Treatment Upcoming Encounters Date Type Department Care Team (Late st Contact Info) Description 02/16/2024 3:00 PM EDT Office Visit Family Practice [facility] [address] [facility] [place] [address] Anupama Alba PA-C [address] [place] [address] Health Maintenance Due Date Last Done Comments Depression Screening 1980 Hepatitis C Screening 1986 Hepatitis B (1 of 3 - 19+ 3-dose series) 1987 HPV/Co-Test 1998 Mammogram 12/21/2012 12/21/2011, 11/29, 12/13/2008 Cologuard 2013 Colonoscopy 2013 Colorectal Cancer Screening 2013 Fecal Occult Blood Test 2013 Sigmoidoscopy 2013 DXA Scan 05/28/2013 05/28/2010 Zoster Vaccines (1 of 2) 2018 Cervical Cancer Screening 09/07/2021 Pap Smear 09/07/2021 09/07/2018, 06/0 11/2016, 12/06/2011, Additional history exists COVID-19 Vaccine ( - season) 2023 Influenza Vaccine (FLU shot) (#1) 2023 08/24/2011, 08/31/2010, 08/28/2009 DTaP,Tdap,and Td Vaccines (3 - Td or Tdap) 06/18/2026 06/18/2016, 07/24/2010, 11/28/2004 Diabetes Screening 02/07/2027 02/08/2024, 0 08/09/2022, 08/09/2022, Additional history exists Lipid Panel 08/09/2027 08/09/2022, 06/16/2009 GARDASIL-HPV IMMUNIZATION SERIES Aged Out No longer eligible based on patient's age to complete this topic MENINGOCOCCAL (MENACTRA/MENVEO) Aged Out No longer eligible based on patient's age to complete this topic Pneumococcal Vaccine: Pediatrics (0 to 5 Years) and At-Risk Patients (6 to 64 Years) Aged Out No longer eligible based on patient's age to complete this topic documented as of this encounter Medical Devices Not on filedocumented as of this encounter Care Teams Plastic Press Operator Relationship Specialty Start Date End Date Anjali February LUDMILA Gross [address] [place] [address] PCP - General Physician Elementary Reading Tutor 10/29/22 documented as of this encounter
--- OUTSIDE RECORDS SUMMARY | 2024-02-17 13:14 | External Medical Summary | Summary of Care ---
Author Name Unknown Organization [facility] Address [address] [address] Phone [phone] Care Team Providers Care Clinical Nurse Educator Name Role Phone Anupama Alba PA-C Primary Care Provider [phone] Reason for Visit * Reason Onset Date Comments Advice 02/13/2024 Emergency Department Follow-Up 02/13/2024 Encounter Details Date Type Department Care Team (Late st Contact Info) Description 02/13/2024 Telephone Family Practice [facility] [place] [address] [facility] [place] [address] Anupama Alba PA-C [address] [facility] [place] [address] Advice; Emergency Department Follow-Up Allergies Active Allergy Reactions Criticality Noted Date Comments Franciscoien Cr 11/23/2020 Other Reaction(s): "unconscious" Latex 04/22/2021 Adhesive Tape Hives 06/27/2008 Latex tape only Tramadol 08/03/2011 "nightmares" and "body spasms" documented as of this encounter (statuses as of 02/14/2024) Medications Medication Sig Dispensed Refills Start Date [...] as of this encounter (statuses as of 02/14/2024) Active Problems Problem Noted Date Diagnosed Date [...] as of this encounter (statuses as of 02/14/2024) Resolved Problems Problem Noted Date Diagnosed Date Resolved Date Pathologic fracture of vertebrae 03/28/2023 03/28/2023 Pathologic fracture of vertebrae 03/18/2023 03/18/2023 documented as of this encounter (statuses as of 02/14/2024) Immunizations Name Administration Dates Next Due PPD [...] encounter Miscellaneous Notes * Telephone Encounter - Marielle Patiño LPN - 02/14/2024 11:05 AM EDT Called patient and made aware. Still having extreme nausea. Pain fluctuates and mostly in her back.. is going to olive picker medication today * Telephone Encounter - Anupama [...] 3:00 PM EDT Office Visit Family Practice [facility] [place] [address] [facility] [address] [place], [place] [address] Anupama Alba PA-C [address] [place], [place] [address] Health Maintenance Due Date Last Done Comments [...] 11/2016, 12/06/2011, Additional history exists COVID-19 Vaccine (1 - 2022-24 season) 2023 Influenza Vaccine (FLU shot) (#1) [...] filedocumented as of this encounter Care Teams Clinical Nurse Educator Relationship Specialty Start Date End Date Anjali Anupama LUDMILA Gross [address] [place] [address] PCP - General Physician Cruller Maker Machine 10/29/22 documented as of this encounter
--- OUTSIDE RECORDS SUMMARY | 2024-02-17 13:14 | External Medical Summary | Summary of Care ---
Author Name Unknown Organization [facility] Address [address] [address] Phone [phone] Care Team Providers Care Staff Attorney Name Role Phone Anupama Alba PA-C Primary Care Provider [phone] Reason for Visit * Reason Onset Date Comments Advice 02/13/2024 Emergency Department Follow-Up 02/13/2024 Encounter Details Date Type Department Care Team (Late st Contact Info) Description 02/13/2024 Telephone Family Practice [facility] [place] [address] [facility] [place] [address] Anupama Alba PA-C [address] [facility] [place] [address] Advice; Emergency Department Follow-Up Allergies Active Allergy [...] encounter Miscellaneous Notes * Telephone Encounter - Ella Drake LPN [...] recommendations for pain relief. Please advise. Ph. [phone] * Telephone Encounter - Tashia Chapman CPhT - 02/15/2024 2:41 PM EDT Patient calling regarding ongoing with with Pancreatitis, warm transferred to nurse line. Thank you, Tashia Chapman, Fisheries Biologist [facility] (Formerly Telepharmacy) 02/15/2024, 2:41 PM * Telephone Encounter - Marielle Patiño LPN - 02/14/2024 11:05 AM EDT Called patient and made aware. Still having extreme nausea. Pain fluctuates and mostly in her back.. is going to pickling solution maker medication today * Telephone Encounter - Anupama [...] 3:00 PM EDT Office Visit Family Practice [facility] [place] [address] [facility] [place] [address] Anupama Alba PA-C [address] [facility] [place] [address] Health Maintenance Due Date Last Done Comments [...] Cancer Screening 09/07/2021 Pap Smear 09/07/2021 09/07/2018, 06/11/2016, 12/06/2011, Additional history exists COVID-19 Vaccine ( - 2022- season) 2023 Influenza Vaccine (FLU shot) (#1) [...] filedocumented as of this encounter Care Teams Staff Attorney Relationship Specialty Start Date End Date Anjali February [place], [place]UDMIL[place] [address] [place] [address] PCP - General Physician Supervisor Hardboard 10/29/22 documented as of this encounter
--- OUTSIDE RECORDS SUMMARY | 2024-02-17 13:14 | External Medical Summary | Summary of Care ---
Author Name Unknown Organization [facility] Address [address] [place] [address] Phone [phone] Care Team Providers Care Appointment Coordinator Name Role Phone Anupama Alba PA-C Primary Care Provider [phone] Encounter Details Date Type Department Care Team (Late st Contact Info) Description 02/13/2024 Orders Only [facility] [address] [place] [address] Diana Porter CHRA [employer] Other*[id number] Allergies Active Allergy Reactions Criticality Noted Date Comments Franciscoien Cr 11/23/2020 Other Reaction(s): "unconscious" Latex 04/22/2021 Adhesive Tape Hives 06/27/2008 Latex tape only Tramadol 08/03/2011 "nightmares" and "body spasms" documented as of this encounter (statuses as of 02/13/2024) Medications Medication Sig Dispensed Refills Start Date [...] abdominal pain 60 Capsule 1 02/08/2024 Active documented as of this encounter (statuses as of 02/13/2024) Active Problems Problem Noted Date Diagnosed Date [...] as of this encounter (statuses as of 02/13/2024) Resolved Problems Problem Noted Date Diagnosed Date Resolved Date Pathologic fracture of vertebrae 03/28/2023 03/28/2023 Pathologic fracture of vertebrae 03/18/2023 03/18/2023 documented as of this encounter (statuses as of 02/13/2024) Immunizations Name Administration Dates Next Due PPD [...] on file documented as of this encounter Plan of Treatment Scheduled Orders Name Type Priority Associated Diagnoses Orde r Schedule MYCODE SUBSEQUENT ADULT Lab Routine [facility] Other*[id number] Every 6 Months for 2 Occurrences starting 02/13/2024 until 03/04/2025 Health Maintenance Due Date Last Done Comments [...] Not on filedocumented as of this encounter Visit Diagnoses Diagnosis [employer] Other*[id number] documented in this encounter Care Teams Appointment Coordinator Relationship Specialty Start Date End Date Anupama Alba PA-C [address] [place] [address] PCP - General Physician Mucker Operator 10/29/22 documented as of this encounter
--- OUTSIDE RECORDS SUMMARY | 2024-02-17 13:14 | External Medical Summary | Summary of Care ---
Author Name Unknown Organization [facility] Address [address] [facility] [place] [place] [address] Phone [phone] Care Team Providers Care Loan Teller Name Role Phone Anupama Alba PA-C Primary Care Provider [phone] Reason for Visit * Reason Onset Date Comments Test Results 02/09/2024 TEST RESULTS Encounter Details Date Type Department Care Team (Late st Contact Info) Description 02/09/2024 Telephone Family Practice [facility] [address] [place] [address] Anupama Alba PA-C [address] [facility] [place] [address] Test Results (TEST RESULTS ) Allergies Active Allergy Reactions Criticality Noted Date Comments Ambien Cr 11/23/2020 Other Reaction(s): "unconscious" Latex 04/22/2021 Adhesive Tape Hives 06/27/2008 Latex tape only Tramadol 08/03/2011 "nightmares" and "body spasms" documented as of this encounter (statuses as of 02/11/2024) Medications Medication Sig Dispensed Refills Start Date [...] as of this encounter (statuses as of 02/11/2024) Active Problems Problem Noted Date Diagnosed Date [...] as of this encounter (statuses as of 02/11/2024) Resolved Problems Problem Noted Date Diagnosed Date Resolved Date Pathologic fracture of vertebrae 03/28/2023 03/28/2023 Pathologic fracture of vertebrae 03/18/2023 03/18/2023 documented as of this encounter (statuses as of 02/11/2024) Immunizations Name Administration Dates Next Due PPD [...] encounter Miscellaneous Notes * Telephone Encounter - Diana Bower OSA - 02/11/2024 4:06 PM EDT Patient following-up on acute pancreatitis, requesting to speak with clinical staff regarding pain.Transferred to answering service. * Telephone Encounter - Desiree Rivas LPN - 02/10/2024 12:05 PM EDT Patient aware and verbalized understanding, will comply. * Telephone Encounter - Greta Fernandez OSA - 02/10/2024 12:02 PM EDT Reason for patient's call: return call Caller was transferred to [facility] at the nurse line. * Telephone Encounter - Anupama Alba PA-C - 02/09/2024 8:57 PM EDT Called patient back, no answer, went to voicemail Elevated lipase. Normal white count Normal renal functions. Suspect acute pacreatitis Recommend ER for hydration. * Telephone Encounter - Anupama Alba PA-C - 02/09/2024 8:53 PM EDT Called patient no answer, went to voicemail. Left message that I would call back in a few minutes. * Telephone Encounter - Aster Koroma RN - 02/09/2024 4:14 PM EDT Requesting test results. Ongoing abdominal pain. Situation has already been addressed by office staff. Already seen for the abdominal pain. Routed to PCP for follow up. Nurse did not call patient. Aster Koroma, RN, BSN assembler brazer Nurse Navigator * Telephone Encounter - Jason Washington OSA - 02/09/2024 4:08 PM EDT What is the reason for call? Consistent abdominal pain that is worsening right in the middle below her breast. What Clinic is the patient trying to reach? [facility] Clinic: [facility] FP - Call Type: Red Flag- route the telephone encounter as routine to assembler brazer p [phone] Call was routed "routine" to the [facility] nurse triage basket (p [phone]). * Telephone Encounter - Ella Drake LPN - 02/09/2024 9:19 AM EDT Pt calling due to seeing lipase level on portal is 401. Pt seen 02/07 she continues to having c/o abdominal pain , diarrhea, nausea and vomiting x 2 weeks. No fever. She is concerned she has pancreatitis. She is also having pain on right lower back. Has not been able to take anything. Please advise. She needs work excuse for today. She is off Tuesday and Tuesday. Pending. Attached excuse to [facility]. * Telephone Encounter - Heather Morrow OSA - 02/09/2024 9:14 AM EDT Patient called in stating she wants to speak to a nurse regarding her test results states she saw her Lipase results on my chart and she is concerned she has pancreatitis. C/o abdominal pain , diarrheal and nausea x 2 weeks. Call placed to Ella mcnamara phone line nurse. documented in this encounter Plan of Treatment Health Maintenance Due Date Last Done Comments [...] as of this encounter Visit Diagnoses Diagnosis Generalized abdominal pain- Primary Abdominal pain, generalized documented in this encounter Additional Health Concerns Infection Onset Date Last Indicated Resolved Time Gastrointestinal Rule-Out 02/09/2024 02/09/2024 10:11 AM EDT C. difficile Rule-Out 02/09/2024 02/09/20242023 11:02 PM EDT documented as of this encounter Care Teams Loan Teller Relationship Specialty Start Date End Date Anjali Anupama LUDMILA Gross [facility][note 3] [address] [place] [address] PCP - General Physician Spud Sorter 10/29/22 documented as of this encounter
--- OUTSIDE RECORDS SUMMARY | 2024-02-17 13:14 | External Medical Summary | Summary of Care ---
Author Name Unknown Organization [facility] Address [address] [facility] [place] [address] Phone [phone] Care Team Providers Care Universal Grinder Set Up Operator Name Role Phone Anupama Alba PA-C Primary Care Provider [phone] Reason for Visit * Reason Onset Date Comments Test Results 02/09/2024 TEST RESULTS Encounter Details Date Type Department Care Team (Late st Contact Info) Description 02/09/2024 Telephone Family Practice [facility] [address] [place] [address] Anupama Alba PA-C [address] [facility] [place] [address] Test Results (TEST RESULTS ) Allergies Active Allergy Reactions Criticality Noted Date Comments Ambien Cr 11/23/2020 Other Reaction(s): "unconscious" Latex 04/22/2021 Adhesive Tape Hives 06/27/2008 Latex tape only Tramadol 08/03/2011 "nightmares" and "body spasms" documented as of this encounter (statuses as of 02/10/2024) Medications Medication Sig Dispensed Refills Start Date [...] as of this encounter (statuses as of 02/10/2024) Active Problems Problem Noted Date Diagnosed Date [...] as of this encounter (statuses as of 02/10/2024) Resolved Problems Problem Noted Date Diagnosed Date Resolved Date Pathologic fracture of vertebrae 03/28/2023 03/28/2023 Pathologic fracture of vertebrae 03/18/2023 03/18/2023 documented as of this encounter (statuses as of 02/10/2024) Immunizations Name Administration Dates Next Due PPD [...] encounter Miscellaneous Notes * Telephone Encounter - Desiree Rivas LPN - 02/10/2024 12:05 PM EDT Patient aware and verbalized understanding, will comply. * Telephone Encounter - Greta Fernandez OSA - 02/10/2024 12:02 PM EDT Reason for patient's call: return call Caller was transferred to [facility] at the nurse line. * Telephone [...] not call patient. Aster Koroma, RN, BSN client services representative Nurse Navigator * Telephone Encounter - Jason Washington OSA - 02/09/2024 4:08 PM EDT What is the reason for call? Consistent abdominal pain that is worsening right in the middle below her breast. What Clinic is the patient trying to reach? [facility] Clinic: [facility] FP - Call Type: Red Flag- route the telephone encounter as routine to client services representative p [phone] Call was routed "routine" to the [facility] nurse triage basket (p [phone]). * Telephone Encounter - Ella Drake LPN [...] documented as of this encounter Care Teams Universal Grinder Set Up Operator Relationship Specialty Start Date End Date Anjali February LUDMILA Gross [address] [place] [address] PCP - General Physician Environmental Planner 10/29/22 documented as of this encounter
--- OUTSIDE RECORDS SUMMARY | 2024-02-17 13:14 | External Medical Summary ---
Author Name Unknown Address Unknown Organization [id number]:[facility] - [address] [place] [address] Laboratory Report Ordering Provider Test Date Status 02/09/2024 14:34:01 Final Observation Date Value Abnormality Reference (Units) Status Bacteria identified in Specimen by Culture 02/09/2024 14:34:01 No Aeromonas species or Plesiomonas species isolated. Final Test: Gastrointestinal Patho gen Panel Culture
Specimen Source: Stool
Specimen Type: Stool
Specimen Date: 02/09/2024 2:34 PM
Result Date: 02/12/2024 10:08 AM
Result Status: Final result
Resulting Lab: [facility]
[address]
[place] [address]

CULTURE

No Aeromonas species or Plesiomonas species isolated.

null Performing Location [facility] - [address] [place] [id number]
--- OUTSIDE RECORDS SUMMARY | 2024-02-17 13:14 | External Medical Summary | Summary of Care ---
Author Name Unknown Organization [facility] Address [address] [facility] [address] Phone [phone] Care Team Providers Care Library Associate Name Role Phone Anupama Alba PA-C Primary Care Provider [phone] Reason for Visit * Reason Onset Date Comments Advice 02/13/2024 Emergency Department Follow-Up 02/13/2024 Encounter Details Date Type Department Care Team (Late st Contact Info) Description 02/13/2024 Telephone Family Practice [facility] [place] [address] [facility] [place] [address] Anupama Alba PA-C [address] [facility] [place] [address] Advice; Emergency Department Follow-Up Allergies Active Allergy [...] encounter Miscellaneous Notes * Telephone Encounter - Tashia Chapman CPhT - 02/15/2024 2:41 PM EDT Patient calling regarding ongoing with with Pancreatitis, warm transferred to nurse line. Thank you, Tashia Chapman, Storage Management Architect [facility] (Formerly Telepharmacy) 02/15/2024, 2:41 PM * Telephone Encounter - Marielle Patiño LPN - 02/14/2024 11:05 AM EDT Called patient and made aware. Still having extreme nausea. Pain fluctuates and mostly in her back.. is going to picking tech medication today * Telephone Encounter - Anupama [...] 3:00 PM EDT Office Visit [facility] [address] [place] [address] Anupama Alba PA-C [address] [place] [address] [address] Health Maintenance Due Date Last Done Comments [...] Additional history exists COVID-19 Vaccine (1 - 2022- season) 2023 Influenza Vaccine (FLU [...] filedocumented as of this encounter Care Teams Library Associate Relationship Specialty Start Date End Date Anupama Alba PA-C [address] [place], [place] [address] PCP - General Physician Tax Intern 10/29/22 documented as of this encounter
--- NOTE | 2024-02-17 15:14 | Hospitalist Progress Note ---
Date of Service February 17, 2024 Assessment & Plan (1) Abdominal pain: Plan: ? Protracted pancreatitis episode No obvious precipitants for now. Patient nontoxic. 02/16 Status post EGD today Positive gastritis Recommend Protonix Continue LR, clear liquids Check lipase tomorrow Monitor closely hx interstitial cystitis anxiety/mood disorder, stable Hyperglycemia rule out DM -A1c 6.7 Follow-up as an outpatient past tobacco abuse DVT prophylaxis with Lovenox subcu Full code plan of care discussed with patient in detail and at length all questions answered she is understanding, agreeable, comfortable with the plan of care Admission and Anticipated Discharge Date Admission Date: February 16, 2024 Subjective Follow-up for abdominal pain, etc. Status post EGD today Patient seen resting in bed Comfortable, not in distress States she still has some abdominal discomfort but improving Has intermittent nausea No fevers or chills no chest pain, dyspnea, palpitations, dizziness No other new symptom Review of Systems Review of Systems: all noted and negative except for above Physical Exam Physical Exam: General- oriented x 3, not in distress, speaks in sentences with no effort or accessory muscle use Eyes- anicteric Neck- no JVD Lungs- clear breath sounds bilaterally, no rales/wheezes Heart- normal rate, regular rhythm; no murmurs Abdomen- normal bowel sounds, nondistended, soft, nontender Extremities- no pretibial edema, no calf tenderness Neuro- alert, oriented x 3; no gross focal neurologic deficits Skin- warm & dry Results & Data Results & Data Vital Signs (Past 12 Hours) Vital Signs Temp Pulse Resp BP Pulse Ox O2 Del Method 02/17/24 15:11 36.8 C 66 16 105/62 93 Room Air 02/17/24 09:56 58 L 16 111/65 94 Room Air 02/17/24 09:41 55 L 16 112/60 94 Room Air 02/17/24 09:26 58 L 12 85/48 L 93 Room Air 02/17/24 08:57 36.4 C L 57 L 16 168/103 H 97 Room Air 02/17/24 07:53 36.4 C L 55 L 16 146/87 H 93 Room Air all noted and reviewed including below (1) Abdominal pain Abdominal location: upper abdomen, unspecified Qualified Code(s): R10.10 - Upper abdominal pain, unspecified
[2024-02-17] MEDS: MoRPHine SULFATE 2 MG/ML CARP IV STA (16:30)
[2024-02-17] MEDS: PANTOprazole 40 MG in SYRINGE 0 ML IV ONE (17:18)
--- OUTSIDE RECORDS SUMMARY | 2024-02-17 18:23 | External Medical Summary | Summary of Care ---
Author Name Unknown Organization [facility] Address [address] [facility] [place] [address] Phone [phone] Care Team Providers Care Machine Shop Instructor Name Role Phone Anupama Alba PA-C Primary Care Provider [phone] Reason for Visit * Reason Comments Hospital Follow-Up Encounter Details Date Type Department Care Team (Late st Contact Info) Description 02/16/2024 3:00 PM EDT Office Visit [facility] [address] [facility] [place] [address] Anupama Alba PA-C [address] [facility] [place] [address] Acute pancreatitis, unspecified complication status, unspecified pancreatitis type* Allergies Active Allergy Reactions Criticality Noted Date Comments Yue Ralph 11/23/2020 Other Reaction(s): "unconscious" Latex 04/22/2021 Adhesive Tape Hives 06/27/2008 Latex tape only Tramadol 08/03/2011 "nightmares" and "body spasms" documented as of this encounter (statuses as of 02/16/2024) Medications Medication Sig Dispensed Refills Start Date [...] Active Additional Information Patient not taking.Reported on 02/16/2024 Sertraline HCl 100 MG Oral Tablet (Zoloft)Indications: [...] as of this encounter (statuses as of 02/16/2024) Active Problems Problem Noted Date Diagnosed Date [...] as of this encounter (statuses as of 02/16/2024) Resolved Problems Problem Noted Date Diagnosed Date Resolved Date Pathologic fracture of vertebrae 03/28/2023 03/28/2023 Pathologic fracture of vertebrae 03/18/2023 03/18/2023 documented as of this encounter (statuses as of 02/16/2024) Immunizations Name Administration Dates Next Due PPD [...] on file documented as of this encounter Last Filed Vital Signs Vital Sign Reading Time Taken Comments Blood Pressure 110/78 02/16/2024 3:34 PM EDT Pulse 81 02/16/2024 3:34 PM EDT Temperature 37.2 C (99 F) 02/16/2024 3:34 PM EDT Respiratory Rate 16 02/16/2024 3:34 PM EDT Oxygen Saturation 99% 02/16/2024 3:34 PM EDT Inhaled Oxygen Concentration - - Weight 92.5 kg (204 lb) 02/16/2024 3:34 PM EDT Height - - Body Mass Index 33.95 11/02/2023 5:14 PM EST documented in this encounter Progress Notes * Anupama Alba PA-C - 02/16/2024 4:01 PM EDT Images from the original note were not included. History of Present Illness Cassi Mejia is a 53 year old female that presents for Hospital Follow-Up Patient is a 53 year old female who presents with persistent GI symptoms for over 3 weeks. Seen last week and labs revealed an elevated lipase. Suspect pancreatitis went to ER; hydrated . Since discharge has been pretty bed bound. Worked for a few hours on Tuesday , left due to fatigue, then Tuesday tried to go to work but was throwing up. Has not vomitted today. No diarrhea. Having lots ot upper abdominal pain Feels sob, nausea Physical Exam Vitals: 02/16/24 1534 Temp: 37.2 C (99 F) Pulse: 81 Resp: 16 SpO2: 99% BP: 110/78 BP Readings from Last 3 Encounters: 02/16/24 110/78 02/08/24 128/80 11/02/23 122/74 Wt Readings from Last 3 Encounters: 02/16/24 92.5 kg (204 lb) 02/08/24 93 kg (205 lb 0.6 oz) 11/02/23 94.8 kg (209 lb) General: alert, well nourished, well developed, cooperative, ill looking, and moderate distress Head: Normocephalic, No masses, lesions, tenderness or abnormalities Eye Exam: PERRLA, extraocular movements intact, conjunctiva are pink and non- injected, sclera clear Oropharynx: no exudate, no erythema, lips, buccal mucosa, and tongue normal, and mucus membranes are dry Neck: supple, no adenopathy, no bruits, thyroid normal size, non-tender, without nodularity Heart: regular rate & rhythm, no murmur, and no gallops Lungs: chest symmetric with normal AP diameter, no chest deformities noted, normal respiratory rateand rhythm, no chest wall tenderness, diaphragmatic excursion normal, lungs clear to auscultation Abdomen: abdomen soft, obese, normal bowel sounds, no masses or organomegaly, no rebound or guarding, no CVA tenderness, no bladder distention identified, no bruits, and upper abdominal tenderness I have reviewed the following results: CBC and BMP Assessment and Plan Acute pancreatitis, unspecified complication status, unspecified pancreatitis type (Primary) Discussed options with patient. Due to lack of staff to hydrate, elected to do repeat labs and hydration at the ER. ER was informed that patient was in route, Wrap-Up Time: I spent a total of 20-29 minutes (exact time 25 mins) on the date of service in preparation, delivery, and documentation of the care provided to Cassi Mejia excluding any time spent in the performance of separately billed services. documented in this encounter Nursing Notes * Marielle Patiño LPN - 02/16/2024 3:30 PM EDT Cassi Mejia presents for hospital recheck. Medications & HM reviewed. Zofran and Toradol help a little but not much. Feels like she is starving but can't eat. Still having sharp stabbing pain. documented in this encounter Plan of Treatment [...] as of this encounter Visit Diagnoses Diagnosis Acute pancreatitis, unspecified complication status, unspecified pancreatitis type- Primary documented in this encounter Care Teams Machine Shop Instructor Relationship Specialty Start Date End Date AnjaliFebruary LUDMILA Gross [address] [place] [address] PCP - General Physician Bench Machine Operator 10/29/22 documented as of this encounter
[2024-02-17] MEDS: HYDROmorphone INJ 0.5 MG/0.5 ML SYR IV PRN (19:22)
[2024-02-17] MEDS: ACETAMINOPHEN 1,000 MG/100 ML VIAL IV STA (22:19)
[2024-02-18] MEDS: PROMETHAZINE HCL 12.5 MG in SODIUM CHLORIDE 0.9% 50 ML IV STA (01:30)
[2024-02-18] MEDS: LACTATED RINGER'S 1,000 ML IV ONE (03:28)
[2024-02-18] MEDS: bisacodyL 10 MG SUPP PR STA (06:18)
--- OUTSIDE RECORDS SUMMARY | 2024-02-18 06:18 | External Medical Summary | Summary of Care ---
Author Name Unknown Organization [facility] Address [address] [facility] [place] [address] Phone [phone] Care Team Providers Care Business Continuity Planning Director Name Role Phone Anupama Alba PA-C Primary Care Provider [phone] Reason for Visit * Reason Onset Date Comments Appointment 02/17/2024 Encounter Details Date Type Department Care Team (Late st Contact Info) Description 02/17/2024 Telephone Gastroenterology, [facility] [address] [place] [address] Tasha Chase CRNP [address] [place] [address] Appointment (/) Allergies Active Allergy Reactions Criticality Noted Date Comments Yue Ralph 11/23/2020 Other Reaction(s): "unconscious" Latex 04/22/2021 Adhesive Tape Hives 06/27/2008 Latex tape only Tramadol 08/03/2011 "nightmares" and "body spasms" documented as of this encounter (statuses as of 02/17/2024) Medications Medication Sig Dispensed Refills Start Date [...] as of this encounter (statuses as of 02/17/2024) Active Problems Problem Noted Date Diagnosed Date [...] as of this encounter (statuses as of 02/17/2024) Resolved Problems Problem Noted Date Diagnosed Date Resolved Date Pathologic fracture of vertebrae 03/28/2023 03/28/2023 Pathologic fracture of vertebrae 03/18/2023 03/18/2023 documented as of this encounter (statuses as of 02/17/2024) Immunizations Name Administration Dates Next Due PPD [...] encounter Miscellaneous Notes * Telephone Encounter - Tasha Chase CRNP - 02/17/2024 9:35 AM EDT Pls set up pt for EUS in about 4 to 6 week's time (elevated lipase, abd pain) ESVIN Lozano documented in this encounter Plan of Treatment Scheduled Orders Name Type Priority Associated Diagnoses Orde r Schedule US ENDOSCOPIC Medical Imaging Routine Elevated lipase Generalized abdominal pain Ordered: 02/17/2024 Health Maintenance Due Date Last Done Comments [...] as of this encounter Visit Diagnoses Diagnosis Elevated lipase- Primary Other nonspecific abnormal serum enzyme levels Generalized abdominal pain Abdominal pain, generalized documented in this encounter Care Teams Business Continuity Planning Director Relationship Specialty Start Date End Date AnjaliFebruary LUDMILA Gross [address] [place], [place] [address] PCP - General Physician Mailmaster 10/29/22 documented as of this encounter
--- OUTSIDE RECORDS SUMMARY | 2024-02-18 06:18 | External Medical Summary | Summary of Care ---
Author Name Unknown Organization [facility] Address [address] [facility] [place] [address] Phone [phone] Care Team Providers Care Advertisement Distributor Name Role Phone Anupama Alba PA-C Primary Care Provider [phone] Encounter Details Date Type Department Care Team (Late st Contact Info) Description 02/17/2024 Orders Only Gastroenterology, [facility] [address] [place] [address] Alyson Carpenter DO [address] [place] [address] Allergies Active Allergy Reactions Criticality Noted Date [...] as of this encounter Plan of Treatment Health Maintenance [...] Not on filedocumented as of this encounter Procedures Procedure Name Priority Date/Time Associated Diagnosis Comments UPPER GI ENDOSCOPY 02/17/2024 documented in this encounter Results * UPPER GI ENDOSCOPY (02/17/2024) 02/17/2024 Alyson Carpenter DO GASTRO UPPER documented in this encounter Care Teams Advertisement Distributor Relationship Specialty Start Date End Date Almafebruary LUDMILA Gross [address] [place] [address] PCP - General Physician Floor Covering Printer 10/29/22 documented as of this encounter
[2024-02-18 06:24] LABS: Basophils # (auto) 0.01 K/uL (0.00-0.20); Basophils % (auto) 0.1 %; Eosinophils # (auto) 0.01 K/uL (0.00-0.50); Eosinophils % (auto) 0.1 %; Hematocrit (blood only) 34.5 % (37.0-47.0); Hemoglobin 10.8 g/dl (12.0-16.0); Immature Granulocytes # (auto) 0.03 K/uL (0.01-0.20); Immature Granulocytes % (auto) 0.4 %; Lymphocytes # (auto) 2.36 K/uL (1.20-3.40); Mean Corpuscular Hemoglobin 26.5 pg (25.0-34.0); Mean Corpuscular Hgb Conc 31.3 g/dL (32.0-36.0); Mean Corpuscular Volume 84.6 fL (80.0-100.0); Mean Platelet Volume 9.9 fL (9.4-12.4); Monocytes # (auto) 0.44 K/uL (0.11-0.59); Monocytes % (auto) 6.3 %; Neutrophils # (auto) 4.09 K/uL (1.40-6.50); Neutrophils % (auto) 59.1 %; Platelet Count 334 K/uL (130-400); RDW Coefficient of Variation 13.8 % (11.5-14.5); RDW Standard Deviation 42.8 fL (36.4-46.3); Red Blood Count 4.08 M/uL (4.20-5.40); White Blood Count 6.94 K/ul (4.8-10.8)
[2024-02-18 06:40] LABS: Albumin Level 3.5 gm/dl (3.4-5.0); BUN Creatinine Ratio 11.8 (10-20); Bilirubin Direct 0.1 mg/dl (0-0.2); Bilirubin,Total 0.4 mg/dl (0.2-1.0); Calcium 8.5 mg/dl (8.6-10.3); Est GFR (African American) 114.1 ml/min; Est GFR (Non-African American) 98.5 ml/min; Potassium 3.8 mmol/L (3.5-5.1); Total Protein 5.6 gm/dl (6.0-8.3)
[2024-02-18] MEDS: ACETAMINOPHEN 1,000 MG/100 ML VIAL IV SCH (09:20)
[2024-02-18] MEDS: SUCRALFATE 1 GM/10 ML UDC PO SCH (10:13)
[2024-02-18] MEDS: PANTOprazole 40 MG in SYRINGE 0 ML IV SCH ×2 (10:13→20:16)
[2024-02-18] MEDS: KETOROLAC TROMETHAMINE 15 MG/ML VIAL IV ONE (11:30)
[2024-02-18] MEDS: SODIUM CHLORIDE 0.9% 1,000 ML IV SCH (11:32)
[2024-02-18 12:19] LABS: Amphetamines+Metham, Urine Neg (Neg); Barbiturates, Urine Neg (Neg); Benzodiazepine, Urine Neg (Neg); Cocaine, Urine Neg (Neg); MDMA (Ecstacy), Urine Neg (Neg); Marijuana, Urine Pos (Neg); Methadone, Urine Neg (Neg); Opiate, Urine Pos (Neg); Phencyclidine, Urine Neg (Neg)
--- NOTE | 2024-02-18 13:58 | XRay Report ---
KUB CLINICAL HISTORY: Abdominal pain. COMPARISON STUDY: CT of the abdomen and pelvis February 16, 2024. FINDINGS: Intrauterine device is noted. The bowel gas pattern is normal. Moderate stool within the co jadyn. No significant stool within the rectum. No urinary calculi are identified. IMPRESSION: No evidence for a bowel obstruction. ACT 112: Negative or not required by law. Electronically signed by: Mannie Reed M.D. 02/18/2024 1:56 PM
--- NOTE | 2024-02-18 14:01 | Gastroenterology Progress Note ---
Date of Service February 18, 2024 Assessment & Plan (1) Epigastric abdominal pain: Plan pains could be related to gastritis just started protonix so will take some time to show effect, she does also have some constipation it appears check KUB to further assess may need clean out recs: continue protonix KUB now stop carafate outpt EUS with Dr. Carpenter stop cannabis, may be contributing to her issues Sacha Meyer MD Gastroenterology Admission and Anticipated Discharge Date Admission Date: February 17, 2024 Subjective abdominal pains appear to be better today, none currently had some this morning with breakfast, still on clears. notes she hasn't had many bowel movements lately. carafate made pains worse she feels. on protonix as well. egd with gastritis, bx pending. labs reviewed. Review of Systems Constitutional: no fever and no chills Respiratory: no cough, no dyspnea and no dyspnea on exertion Cardiovascular: no chest pain and no dyspnea Gastrointestinal: as per Subjective / HPI Psychiatric: no depression and no anxiety Physical Exam Constitutional: WD/WN, vitals as above Neck: normal visual inspection Respiratory: normal respiratory effort, lungs clear to auscultation Cardiovascular: RRR, no murmur, no edema Gastrointestinal (Abdomen): Inspection/Auscultation: abdomen normal to inspection; abdomen not distended Percussion/Palpation: + abdomen tender (RUQ mild) and abdomen soft; no hepatosplenomegaly Musculoskeletal: Head/Neck/Chest: normocephalic and head atraumatic Extremities: no cyanosis Skin: no rashes, warm and dry Neurologic: moves all extremities Psychiatric: Orientation: alert and cooperative Affect: euthymic affect Results & Data Results & Data Vital Signs (Past 12 Hours) Vital Signs Temp Pulse Resp BP Pulse Ox O2 Del Method 02/18/24 08:00 36.7 C 59 L 16 134/62 96 Room Air PG Care Time/CCT Total # of Minutes Spent Total Time Spent with Patient: Total time spent is greater than 50% in coordination of care (as documented) at patient's floor/unit and/or counseling patient: Coding Level of Care Code 05257 SUB INP/OBS CARE 3/50MIN Diagnoses Epigastric abdominal pain R10.13
[2024-02-18] MEDS: LAVAGE SOLUTION 4000ML PO ONE (18:39)
[2024-02-18 22:50] LABS: Adenovirus F 40/41 PCR Not Detected (NotDetected); Astrovirus PCR Not Detected (NotDetected); Campylobacter PCR Not Detected (NotDetected); Cryptosporidium PCR Not Detected (NotDetected); Cyclospora cayetanensis PCR Not Detected (NotDetected); Entamoeba histolytica PCR Not Detected (NotDetected); Enteroaggregative E.coli(EAEC) Not Detected (NotDetected); Enteropathogenic E.coli (EPEC) Not Detected (NotDetected); Enterotoxigenic E.coli (ETEC) Not Detected (NotDetected); Norovirus GI/GII PCR Not Detected (NotDetected); Plesiomonas shigelloides PCR Not Detected (NotDetected); Rotavirus A PCR Not Detected (NotDetected); Salmonella PCR Not Detected (NotDetected); Sapovirus PCR Not Detected (NotDetected); Shiga-like Toxin E.coli (STEC) Not Detected (NotDetected); Shigella/Enteroinvasive E.coli Not Detected (NotDetected); Vibrio cholerae PCR Not Detected (NotDetected); Vibrio species PCR Not Detected (NotDetected); Yersinia enterocolitica PCR Not Detected (NotDetected)
[2024-02-18 23:00] LABS: Giardia lamblia PCR DETECTED (NotDetected)
--- NOTE | 2024-02-18 23:10 | Communication Note ---
Date of Service: February 18, 2024 Notified by RN of positive stool Giardia lamblia PCR. AP Giardiasis Nitazoxanide course (Tinidazole not available inpatient as per pharmacy.)
[2024-02-18] MEDS: NITAZOXANIDE 500 MG TAB PO SCH (23:46)
[2024-02-19] MEDS: NITAZOXANIDE 500 MG TAB PO SCH (09:53)
--- NOTE | 2024-02-19 10:08 | Hospitalist Progress Note ---
Date of Service February 19, 2024 Assessment & Plan (1) Abdominal pain: Plan: ? Protracted pancreatitis episode No obvious precipitants for now. Patient nontoxic. 02/16 Status post EGD today Positive gastritis Recommend Protonix 02/17 still having abdominal pain Lipase normal reconsulted GI KUB: (+) moderate constipation Golytely ordered Protonix IV BID 02/18 (+) Giardia on stool panel Nitazoxanide started- 3 day course improving continue to monitor closely hx interstitial cystitis anxiety/mood disorder, stable Hyperglycemia rule out DM -A1c 6.7 Follow-up as an outpatient past tobacco abuse DVT prophylaxis with Lovenox subcu Full code plan of care discussed with patient in detail and at length all questions answered she is understanding, agreeable, comfortable with the plan of care Admission and Anticipated Discharge Date Admission Date: February 17, 2024 Subjective ff up for acute pancreatitis, gastritis, etc seen resting in bed, not in distress in good spirits states she feels improved today less abdominal pain, nausea (+) loose BMs, non bloody no fever/chills tolerated some pancakes this morning no other new symptoms Review of Systems Review of Systems: all noted and negative except for above Physical Exam Physical Exam: General- oriented x 3, not in distress, speaks in sentences with no effort or accessory muscle use Eyes- anicteric Neck- no JVD Lungs- clear breath sounds bilaterally, no rales/wheezes Heart- normal rate, regular rhythm; no murmurs Abdomen- normal bowel sounds, nondistended, soft, nontender Extremities- no pretibial edema, no calf tenderness Neuro- alert, oriented x 3; no gross focal neurologic deficits Skin- warm & dry Results & Data Results & Data Vital Signs (Past 12 Hours) Vital Signs Temp Pulse Resp BP Pulse Ox O2 Del Method 02/19/24 07:33 36.4 C L 61 16 132/66 93 Room Air all noted and reviewed including below (1) Abdominal pain Abdominal location: upper abdomen, unspecified Qualified Code(s): R10.10 - Upper abdominal pain, unspecified
--- NOTE | 2024-02-19 10:09 | Hospitalist Progress Note ---
Date of Service February 19, 2024 delayed entry date of service 02/17 Assessment & Plan (1) Abdominal pain: Plan: ? Protracted pancreatitis episode No obvious precipitants for now. Patient nontoxic. 02/16 Status post EGD today Positive gastritis Recommend Protonix 02/17 still having abdominal pain Lipase normal reconsulted GI KUB: (+) moderate constipation Golytely ordered Protonix IV BID continue to monitor closely hx interstitial cystitis anxiety/mood disorder, stable Hyperglycemia rule out DM -A1c 6.7 Follow-up as an outpatient past tobacco abuse DVT prophylaxis with Lovenox subcu Full code plan of care discussed with patient in detail and at length all questions answered she is understanding, agreeable, comfortable with the plan of care Admission and Anticipated Discharge Date Admission Date: February 17, 2024 Subjective ff up for pancreatitis, etc seen resting in bed, uncomfortable still having some abdominal pain, nausea no BMs yet no chest pain, dyspnea, palpitations, dizziness no other symptoms Review of Systems Review of Systems: all noted and negative except for above Physical Exam Physical Exam: General- oriented x 3, not in distress, speaks in sentences with no effort or accessory muscle use Eyes- anicteric Neck- no JVD Lungs- clear breath sounds bilaterally, no rales/wheezes Heart- normal rate, regular rhythm; no murmurs Abdomen- normal bowel sounds, nondistended, soft, (+) mild tenderness on all quadrants Extremities- no pretibial edema, no calf tenderness Neuro- alert, oriented x 3; no gross focal neurologic deficits Skin- warm & dry Results & Data Results & Data Vital Signs (Past 12 Hours) Vital Signs Temp Pulse Resp BP Pulse Ox O2 Del Method 02/19/24 07:33 36.4 C L 61 16 132/66 93 Room Air all noted and reviewed including below (1) Abdominal pain Abdominal location: upper abdomen, unspecified Qualified Code(s): R10.10 - Up per abdominal pain, unspecified
[2024-02-20 06:58] LABS: Creatinine Clr Calc Pharmacy 84.2 ml/min; Est GFR (African American) 90.7 ml/min; Est GFR (Non-African American) 78.2 ml/min
[2024-02-20] MEDS: DICYCLOMINE HCL 10 MG CAP PO PRN (07:15)
[2024-02-20 08:53] LABS: BUN Creatinine Ratio 7.1 (10-20); Calcium 8.5 mg/dl (8.6-10.3); Magnesium 2.1 mg/dl (1.7-2.4); Potassium 3.7 mmol/L (3.5-5.1)
--- NOTE | 2024-02-20 10:27 | XRay Report ---
XR KUB/Abdomen 1 view CLINICAL HISTORY: persistent abdominal pain TECHNIQUE: 1 view of the abdomen was obtained. Comparison: Comparison is made to chest radiograph 02/18/2024 FINDINGS: Lung bases are unremarkable. Degenerative changes are seen in the visualized skeleton. The bowel gas pattern is nonobstructive. Small stool burden is seen. IMPRESSION: Nonobstructive bowel gas pattern. ACT 112: Negative or not required by law. Electronically signed by: Brandon Liang M.D. 02/20/2024 10:26 AM
--- NOTE | 2024-02-20 10:35 | Gastroenterology Progress Note ---
Date of Service February 20, 2024 Assessment & Plan (1) Giardia: (2) Acute pancreatitis: Plan 1. Recheck LFTs, lipase today. 2. Consider CT panc protocol or MRI pancreas. 3. Autoimmune markers (SHILA, IGG4) as no clear precipitant for pancreatitis and pt has fam hx of autoimmune dx (sister w Crohn's, sister w Rh Art, father Sherry Mac's). 4. Clear liquid diet. 5. MRCP/MRI pancreas. 6. OP EUS was ordered last week, to be complete in approx one month. 7. Reglan 10mg Q 6hs x w days for nausea, likely ileus. 8. Will re-eval tomorrow. Admission and Anticipated Discharge Date Admission Date: February 17, 2024 Subjective GI was asked to re-evaluate this pt due to continued abd pain. She is a 53 yo female w abd pain, N/V, diarrhea w/o GI bleeding. Stools (+) for Giardia and urine (+) for Gardnerella. On Nitazoxanide. Diarrhea was severe from about 4 wks ago to 2 wks ago then become constipated, took a bowel prep 2 days w one exposive BM, then no further BMs and not passing since then. Noted to have elevated lipase (400s in the OP setting last week just prior to arrival, then 150 hereon arrival w improvement the next day), normal LFTs. US and CT abd/pelvis w/o signs of gallbladder disease, nor pancreatitis. EGD on 02/17/24: gastritis, otherwise (-). Gastric and duodenal bx are normal (no H pylori, no mention of gastritis). KUB today w gas, mild stool burden, no signs of obstruction. Regarding cause of pancreatitis, no LFT elevation and no gallbladder or bile duct abnormalities on imaging. No prior episodes of pancreatitis. No hx of i ncreased ETOH intake. She does have fatty liver. + marijuana use (RSO, an oil derivative most recently > 2 wks ago). She does have a fam hx of autoimmune disorders. Describes upper abd pain in a band around the lower ribs and upper abd, wrapping around the right side. This began about 4 wks ago and waxes and wains since then. Worse after eating any solid foods, not as bad when on clear liquids. Review of Systems Review of Systems: ROS: Gen: Denies weakness, fevers, weight loss Eyes: No eye redness, or pain, no recent vision changes Resp: No SOB, no cough Cardio: No palpitations/irregular beats, no chest pain GI: As per HPI otherwise (-) : Denies pain on urination Skin: No jaundice, itching or new rashes Physical Exam Constitutional: AAO, very uncomfortable, afebrile Eyes: PERRL, conjunctivae normal, anicteric sclerae ENMT: external ear and nose normal, oropharynx normal Neck: trachea midline, no thyromegaly Respiratory: normal respiratory effort, lungs clear to auscultation Cardiovascular: RRR, no murmur, no edema Gastrointestinal (Abdomen): exquisitely tender in the epigastric area. minimal BS. Soft, no masses, non distended Musculoskeletal: no cyanosis or clubbing, extremities motor strength 5/5 Results & Data Vital Signs (Past 12 Hours) Vital Signs Temp Pulse Resp BP Pulse Ox O2 Del Method 02/20/24 09:39 Room Air 02/20/24 07:09 36.6 C 52 L 18 135/81 95 Room Air Laboratory Results CMP normal x calcium ow at 8.5. Diagnostic Findings EGD 02/18/24: - Normal esophagus. - Gastritis. Biopsied. - Normal examined duodenum. KUB 02/20/24: Nonobstructive bowel gas pattern. CTAP w IV: No CT evidence of acute pancreatitis. No acute finding. GB US 02/16/24: Possible mild diffuse fatty liver, otherwise unremarkable right upper quadrant ultrasound.
[2024-02-20] MEDS ORDERED: METOCLOPRAMIDE HCL INJ 5 MG/ML 2 ML VIAL IV PRN (12:57)
[2024-02-20] MEDS: DICYCLOMINE HCL 10 MG CAP PO SCH (13:04)
[2024-02-20 14:10] LABS: Albumin Level 3.8 gm/dl (3.4-5.0); Bilirubin,Total 0.3 mg/dl (0.2-1.0)
[2024-02-20 14:16] LABS: Total Protein 6.1 gm/dl (6.0-8.3)
--- NOTE | 2024-02-20 16:36 | Hospitalist Progress Note ---
Date of Service February 20, 2024 Assessment & Plan (1) Abdominal pain: Plan: 1) Abdominal pain: Plan: ? Protracted pancreatitis episode No obvious precipitants for now. Patient nontoxic. 02/16 Status post EGD today Positive gastritis Recommend Protonix 02/17 still having abdominal pain Lipase normal reconsulted GI KUB: (+) moderate constipation Golytely ordered Protonix IV BID 02/18 (+) Giardia on stool panel Nitazoxanide started- 3 day course 02/19 Still having abdominal pain and nausea again Lipase level elevated from 14-now 141 KUB no obstruction, small stool burden Requested reevaluation from GI service MRCP ordered Continue IV LR Continue treatment of Giardia hx interstitial cystitis anxiety/mood disorder, stable Hyperglycemia rule out DM -A1c 6.7 Follow-up as an outpatient past tobacco abuse DVT prophylaxis with Lovenox subcu Full code plan of care discussed with patient in detail and at length all questions answered she is understanding, agreeable, comfortable with the plan of care Admission and Anticipated Discharge Date Admission Date: February 17, 2024 Subjective Follow-up for acute pancreatitis, GERD infection, etc. Seen resting in bed, not in distress Still having abdominal pain, intermittent nausea Only able to tolerate crackers No diarrhea No fevers or chills nextno chest pain, dyspnea, palpitations, dizziness No other new symptom Review of Systems Review of Systems: all noted and negative except for above Physical Exam Physical Exam: General- oriented x 3, not in distress, speaks in sentences with no effort or accessory muscle use Eyes- anicteric Neck- no JVD Lungs- clear breath sounds bilaterally, no rales/wheezes Heart- normal rate, regular rhythm; no murmurs Abdomen- normal bowel sounds, nondistended, soft, mild tenderness in all quadrants Extremities- no pretibial edema, no calf tenderness Neuro- alert, oriented x 3; no gross focal neurologic deficits Skin- warm & dry Results & Data Results & Data Vital Signs (Past 12 Hours) Vital Signs Temp Pulse Resp BP Pulse Ox O2 Del Method 02/20/24 15:33 36.6 C 51 L 16 127/82 97 Room Air 02/20/24 09:39 Room Air 02/20/24 07:09 36.6 C 52 L 18 135/81 95 Room Air all noted and reviewed including below (1) Abdominal pain Abdominal location: upper abdomen, unspecified Qualified Code(s): R10.10 - Upper abdominal pain, unspecified
[2024-02-20] MEDS: LACTATED RINGER'S 1,000 ML IV SCH (18:14)
--- NOTE | 2024-02-20 19:28 | Magnetic Resonance Report ---
MRCP CLINICAL HISTORY: Acute pancreatitis. COMPARISON STUDY: Abdominal CT and ultrasound dated 02/16/2024. Abdominal CT dated 04/16/2012. TECHNIQUE: Abdominal MRCP is performed utilizing various T2-weighted sequences in the axial and coron al planes. IV contrast was not administered for this examination. 3-D reformats are created and asses sed. Diffusion-weighted imaging was utilized. FINDINGS: No gallstones are identified. The gallbladder is distended but otherwise normal in appearance. There is no intra or extrahepatic biliary ductal dilatation. The common bile duct measures up to 4 mm in di ameter. There are no intraluminal filling defects to suggest choledocholithiasis. The pancreatic duct is normal in caliber. An indeterminate 3.8 cm T2 hyperintense lesion in the subcapsular right lobe of the liver is unchange d. This has been present dating back to at least 2011. The unenhanced liver is otherwise normal as vi sualized. The unenhanced spleen, adrenal glands, kidneys, and pancreas are grossly unremarkable. No p eripancreatic inflammation or fluid is identified. There is no abdominal ascites. The abdominal aorta is normal in course and caliber. The imaged bowel loops show no evidence of obstruction. The heart i s top normal in size noting trace pericardial effusion. There are also trace pleural effusions. No de structive bony process is identified. IMPRESSION: 1. Normal MRCP. 2. There is no MRI evidence of pancreatitis. 3. Additional findings as above. Dictated: 02/20/2024 6:36 PM Transcribed: 02/20/2024 7:02 PM Kin [id number] [email or web address] Electronically signed by: Matias Solano M.D. 02/20/2024 7:26 PM
[2024-02-21 07:52] LABS: BUN Creatinine Ratio 8.9 (10-20); Calcium 8.7 mg/dl (8.6-10.3); Creatinine Clr Calc Pharmacy 89.5 ml/min; Est GFR (African American) 97.7 ml/min; Est GFR (Non-African American) 84.3 ml/min; Potassium 3.7 mmol/L (3.5-5.1)
--- NOTE | 2024-02-21 10:33 | Gastroenterology Progress Note ---
Date of Service February 21, 2024 Assessment & Plan (1) Giardia: (2) Acute pancreatitis: (3) Anemia: Plan: Likely dilutional. Hb was normal 2 wks ago. No gross GI bleeding. EGD normal. Will arrange OP Colonoscopy. Plan 1. OP EUS was ordered last week, to be complete in approx one month. 2. Continue Reglan 10mg change to before meals TID. Hold dicyclomine for now as epigastric pain seems to be more significant for her than lower abdomen cramping. 3. Advance diet to full liquids low-fat. 4. Stools for pancreatic elastace to r/o pancreatic insufficiency. 5. OP colonoscopy (never had initial screening). 6. GI will sign off, please recall for new problems or questions. Admission and Anticipated Discharge Date Admission Date: February 17, 2024 Supervising Physician Co-Signing Physician Notes Pt with epigastric pain rad to back. Lipase increased on admit. Stool pos Giardia. No radiographic evidence of pancreatitis. EGD unremarkable. Unclear cause of persistent pain. Plan trial of Reglan, diet as tolerated, outpt pancreas EUS. Subjective 53-year-old female admitted 02/16 for abdominal pain nausea and vomiting. Stool studies positive for Giardia. Had lipase over 400 as an outpatient prior to arrival. LFTs normal. Imaging without gallbladder pancreas or bile duct abnormalities. No bowel movement since a bowel prep 2 days ago which resulted in diarrhea. Is passing gas. Pain is epigastric and right upper quadrant radiating around the right side to the right mid back. Pain is improved compared to yesterday. Tolerating clear liquid diet. Last pain medication dose more than 12 hours ago. No vomiting. Nausea improved. Review of Systems Review of Systems: ROS: Gen: Denies weakness, fevers, weight loss Eyes: No eye redness, or pain, no recent vision changes Resp: No SOB, no cough Cardio: No palpitations/irregular beats, no chest pain GI: As per HPI otherwise (-) : Denies pain on urination Skin: No jaundice, itching or new rashes Physical Exam Eyes: PERRL, conjunctivae normal, anicteric sclerae ENMT: external ear and nose normal, oropharynx normal Neck: trachea midline, no thyromegaly Respiratory: normal respiratory effort, lungs clear to auscultation Cardiovascular: RRR, no murmur, no edema Musculoskeletal: no cyanosis or clubbing, extremities motor strength 5/5 Neurologic: PERRL, EOMI, accommodation nl, no face palsy, no dysarthria Psychiatric: A+Ox3, euthymic affect Lymphatic: no cervical or axillary lymphadenopathy Results & Data Vital Signs (Past 12 Hours) Vital Signs Temp Pulse Resp BP Pulse Ox O2 Del Method 02/21/24 07:40 36.7 C 57 L 16 134/84 96 Room Air 02/21/24 07:35 Room Air 02/21/24 05:03 145/82 H Laboratory Results 02/21/24 02/21/24 02/20/24 Range/Units 06:12 06:10 05:49 Sodium 142 (136-145) mmol/L Potassium 3.7 (3.5-5.1) mmol/L Chloride 106 (98-107) mmol/L Carbon Dioxide 30 (21-32) mmol/L Anion Gap 6 (3-11) BUN 7 (6-23) mg/dl Creatinine 0.79 (0.6-1.2) mg/dl Est Cr Clr Drug Dosing 89.5 ml/min Est GFR ( Amer) 97.7 ml/min Est GFR (Non-Af Amer) 84.3 ml/min BUN/Creatinine Ratio 8.9 L (10-20) Glucose 100 H (70-99(Fasting)) mg/dl Calcium 8.7 (8.6-10.3) mg/dl Total Bilirubin 0.3 (0.2-1.0) mg/dl Direct Bilirubin 0.0 (0-0.2) mg/dl AST 20 (13-39) U/L ALT 15 (7-52) U/L Alkaline Phosphatase 68 (34-104) U/L Total Protein 6.1 (6.0-8.3) gm/dl Albumin 3.8 (3.4-5.0) gm/dl Lipase 44 141 H (11-82) U/L IgG Pending IgG1 Pending IgG2 Pending IgG3 Pending IgG4 Pending SHILA Screen Pending Diagnostic Findings MRI pancreas/MRCP: 1. Normal MRCP. 2. There is no MRI evidence of pancreatitis.
--- NOTE | 2024-02-21 12:52 | Hospitalist Progress Note ---
Date of Service February 21, 2024 Assessment & Plan (1) Abdominal pain: Plan: 1) Abdominal pain: Plan: ? Protracted pancreatitis episode No obvious precipitants for now. Patient nontoxic. Status post EGD on 02/16 which was positive for gastritis She remains on Protonix twice daily, will convert to oral She continues to have off-and-on abdominal pain Repeat lipase has been normal Previous KUB did show moderate constipation which resolved status post GoLytely prep On 02/18 she did test positive for Giardia and completed course of Nitazoxanide MRCP negative for acute pancreatitis GI saw pt - recommended stool for pancreatic elastase to r/o insufficiency D/C IVF gradually advance diet hopeful to d/c pt tomorrow with GI f/u. She will need OP Colonoscopy as she has never had initial screening IGG and SHILA screen pending encourage ambulation she continues to require narcotic will adjust regimen in prep for pt d/c hx interstitial cystitis anxiety/mood disorder, stable Hyperglycemia rule out DM -A1c 6.7 Follow-up as an outpatient past tobacco abuse DVT prophylaxis with Lovenox Full code Patient was seen and examined in collaboration with, Dr. Coleman, please see addendum A total of 45 minutes was spent coordinating, documenting, and providing care for this patient excluding time spent in the performance of separately billed services. This included personally viewing all current laboratories and imaging studies, medication reconciliation, outpatient chart review, and discussion with specialists. Admission and Anticipated Discharge Date Admission Date: February 17, 2024 Supervising Physician Co-Signing Physician Notes Attending Addendum: care coordinated with MADDY Mcconnell please refer to her notes for full details, I agree with her notes patient seen and examined, records reviewed by myself as well on exam, patient seen resting in bed, comfortable, not in distress In good spirits States she feels improved today Less abdominal pain, no nausea no other symptoms VS noted and reviewed oriented x 3, not in distress, speaks in sentences with no effort nor accessory muscle use normal rate, regular rhythm, no murmurs clear breath sounds bilaterally non distended, soft, nontender no bipedal edema, erythema, warmth no neuro deficits All labs noted and reviewed ASSESSMENT AND PLAN other diagnoses and plan of care as per MADDY Mcconnell's notes Evelio Coleman MD Subjective Patient was seen and examined in 353. Follow-up abdominal pain. She tolerated clear liquids for breakfast and full liquid for lunch. She still gets a tense abdomen and crampy epigastric pain after eating. She denies nausea, vomiting, fever, chills, sweats, chest pain or shortness of breath. Her last bowel movement was a few days ago, but she states she has not had much to eat or drink. She is tolerating liquids and water. Review of Systems Review of Systems: All systems reviewed & are unremarkable except as noted in HPI & below Physical Exam Physical Exam: Gen: WD/WN, NAD, A&O x3 HEENT: Normocephalic, atraumatic, conjunctivae moist, sclerae anicteric, mucous membranes moist. Lung: Clear to Auscultation bilaterally, no wheezes/rales/rhonchi Heart: Regular rate, regular rhythm, no murmurs, rubs, or gallops Abdomen: Soft, TTP upper/epigastric region, ND +BS x 4 Extremities: No edema Skin: Warm, no rash, negative turgor. Results & Data Results & Data Vital Signs (Past 12 Hours) Vital Signs Temp Pulse Resp BP Pulse Ox O2 Del Method 02/21/24 07:40 36.7 C 57 L 16 134/84 96 Room Air 02/21/24 07:35 Room Air 02/21/24 05:03 145/82 H Laboratory Results [facility] 02/21/24 06:12 Sodium 142 Potassium 3.7 Chloride 106 Carbon Dioxide 30 BUN 7 Creatinine 0.79 Glucose 100 H Calcium 8.7 Liver Function 02/20/24 Range/Units 05:49 Total Bilirubin 0.3 (0.2-1.0) mg/dl Direct Bilirubin 0.0 (0-0.2) mg/dl AST 20 (13-39) U/L ALT 15 (7-52) U/L Alkaline Phosphatase 68 (34-104) U/L Albumin 3.8 (3.4-5.0) gm/dl Diagnostic Findings Abdomen/Pelvis CT 02/16/24 18:16 Exam(s): CT ABDOMEN + PELVIS With Contrast IV Amt: 90 cc opti 320 EXAM: CT Abdomen and Pelvis With Intravenous Contrast CLINICAL HISTORY: Upper pain abd to back, elevated lipase. TECHNIQUE: Axial computed tomography images of the abdomen and pelvis with intravenous contrast. CTDI is 26.84 mGy and DLP is 1470.67 mGy-cm. Automated exposure control was utilized for the study. A dose lowering technique was utilized adhering to the principles of ALARA. CONTRAST: Patient received 90 cc opti 320 of IV contrast COMPARISON: CT abdomen and pelvis 02/10/2024 FINDINGS: Lung bases: Unremarkable. No mass. No consolidation. ABDOMEN: Liver: There is a simple appearing hepatic cyst, no follow-up is needed. Gallbladder and bile ducts: Unremarkable. No calcified stones. No ductal dilation. Pancreas: Unremarkable. No ductal dilation. No CT evidence of acute pancreatitis. Spleen: Unremarkable. No splenomegaly. Adrenals: Unremarkable. No mass. Kidneys and ureters: Unremarkable. No solid mass. No hydronephrosis. Stomach and bowel: Unremarkable. No obstruction. No mucosal thickening. PELVIS: Appendix: No findings to suggest acute appendicitis. Bladder: Unremarkable. No mass. Reproductive: An IUD is noted within an otherwise unremarkable uterus. ABDOMEN and PELVIS: Intraperitoneal space: Unremarkable. No free air. No significant fluid collection. Bones/joints: There are degenerative changes of the spine. No acute fracture. No dislocation. Soft tissues: Unremarkable. Vasculature: Unremarkable. No abdominal aortic aneurysm. Lymph nodes: Unremarkable. No enlarged lymph nodes. IMPRESSION: No CT evidence of acute pancreatitis. No acute finding. Electronically signed by: Myranda Krishnamurthy MD 02/16/24 19:53 PM Gallbladder Ultrasound 02/16/24 20:38 Exam(s): US GALLBLADDER EXAM: US Abdomen Limited, Gallbladder CLINICAL HISTORY: Reason for exam: abd pain. TECHNIQUE: Real-time ultrasound of the right upper quadrant with image documentation. COMPARISON: None. FINDINGS: Limitations: Exam is limited due to gas artifact in the bowel. Liver: There is mild diffuse increased echogenicity throughout the liver suggestive of fatty infiltration. The liver measures 16.09 cm. The main portal vein reveals hepatopedal flow. Gallbladder: Moody sign is indeterminate due to prior medication. The gallbladder wall measures 2.4 mm. No gallstones. Common bile duct: The common bile duct measures 4.3 mm. No stones. No dilation. Pancreas: The pancreas is obscured. Right kidney: The right kidney measures 9.5 cm. IMPRESSION: Possible mild diffuse fatty liver, otherwise unremarkable right upper quadrant ultrasound. Electronically signed by: Sheri Haji MD 02/16/24 23:11 PM KUB X-Ray 02/18/24 13:36 KUB CLINICAL HISTORY: Abdominal pain. COMPARISON STUDY: CT of the abdomen and pelvis February 16, 2024. FINDINGS: Intrauterine device is noted. The bowel gas pattern is normal. Moderate stool within the colon. No significant stool within the rectum. No urinary calculi are identified. IMPRESSION: No evidence for a bowel obstruction. ACT 112: Negative or not required by law. Electronically signed by: Mannie Reed M.D. 02/18/2024 1:56 PM KUB X-Ray 02/20/24 10:03 XR KUB/Abdomen 1 view CLINICAL HISTORY: persistent abdominal pain TECHNIQUE: 1 view of the abdomen was obtained. Comparison: Comparison is made to chest radiograph 02/18/2024 FINDINGS: Lung bases are unremarkable. Degenerative changes are seen in the visualized skeleton. The bowel gas pattern is nonobstructive. Small stool burden is seen. IMPRESSION: Nonobstructive bowel gas pattern. ACT 112: Negative or not required by law. Electronically signed by: Brandon Liang M.D. 02/20/2024 10:26 AM Cholangiopancreatography MRI 02/20/24 12:54 MRCP CLINICAL HISTORY: Acute pancreatitis. COMPARISON STUDY: Abdominal CT and ultrasound dated 02/16/2024. Abdominal CT dated 04/16/2012. TECHNIQUE: Abdominal MRCP is performed utilizing various T2-weighted sequences in the axial and coronal planes. IV contrast was not administered for this examination. 3-D reformats are created and assessed. Diffusion-weighted imaging was utilized. FINDINGS: No gallstones are identified. The gallbladder is distended but otherwise normal in appearance. There is no intra or extrahepatic biliary ductal dilatation. The common bile duct measures up to 4 mm in diameter. There are no intraluminal filling defects to suggest choledocholithiasis. The pancreatic duct is normal in caliber. An indeterminate 3.8 cm T2 hyperintense lesion in the subcapsular right lobe of the liver is unchanged. This has been present dating back to at least 2011. The unenhanced liver is otherwise normal as visualized. The unenhanced spleen, adrenal glands, kidneys, and pancreas are grossly unremarkable. No peripancreatic inflammation or fluid is identified. There is no abdominal ascites. The abdominal aorta is normal in course and caliber. The imaged bowel loops show no evidence of obstruction. The heart is top normal in size noting trace pericardial effusion. There are also trace pleural effusions. No destructive bony process is identified. IMPRESSION: 1. Normal MRCP. 2. There is no MRI evidence of pancreatitis. 3. Additional findings as above. Dictated: 02/20/2024 6:36 PM Transcribed: 02/20/2024 7:02 PM Kin [id number] [email or web address] Electronically signed by: Matias Solano M.D. 02/20/2024 7:26 PM Medications Administered Current Inpatient Medications Dicyclomine HCl (Dicyclomine Hcl 10 Mg Cap) 10 mg PO QID [facility] Stop: 03/21/24 12:59 Last Admin: 02/21/24 08:30 Dose: 10 mg Enoxaparin Sodium (Enoxaparin Inj 40 Mg/0.4 Ml Syr) 40 mg SQ QAM [facility] Stop: 03/18/24 08:59 Last Admin: 02/21/24 08:31 Dose: Not Given Hydromorphone HCl (Hydromorphone Inj 0.5 Mg/0.5 Ml Syr) 0.5 mg IV Q4H PRN PRN Reason: Severe Pain (Scale 7, 8, 9,10) Stop: 03/02/24 18:41 Last Admin: 02/21/24 10:00 Dose: 0.5 mg Promethazine HCl 12.5 mg/ (Sodium Chloride) 50.5 mls @ 202 mls/hr IV Q6H PRN PRN Reason: Nausea And Vomiting Stop: 03/17/24 20:37 Last Infusion: 02/21/24 11:37 Dose: Infused Pantoprazole Sodium 40 mg/ (Syringe) 10 mls @ 5 mls/min IV BID [facility] Stop: 03/19/24 20:59 Last Admin: 02/21/24 08:29 Dose: 5 mls/min Lactated Ringer's (Lr) 1,000 mls @ 75 mls/hr IV .[id number] [facility] Stop: 03/21/24 16:44 Last Admin: 02/21/24 06:33 Dose: 75 mls/hr Lorazepam (Lorazepam 0.5 Mg Tab) 0.5 mg PO TID PRN PRN Reason: Anxiety Stop: 03/17/24 22:50 Metoclopramide HCl (Metoclopramide Hcl Inj 5 Mg/Ml 2 Ml Vial) 10 mg IV Q6H PRN PRN Reason: Nausea Stop: 03/23/24 12:56 Oxycodone HCl (Oxycodone Hcl Ir 5 Mg Tab (Immediate Release)) 5 - 10 mg PO QID PRN PRN Reason: Pain Stop: 03/01/24 20:37 Last Admin: 02/21/24 11:29 Dose: 10 mg Ropinirole HCl (Ropinirole Hcl 2 Mg Tablet) 4 mg PO HS [facility] Stop: 03/17/24 23:52 Last Admin: 02/20/24 20:37 Dose: 4 mg Sertraline HCl (Sertraline Hcl 100 Mg Tablet) 200 mg PO QAM [facility] Stop: 03/18/24 08:59 Last Admin: 02/21/24 08:30 Dose: 200 mg (1) Abdominal pain Abdominal location: upper abdomen, unspecified Qualified Code(s): R10.10 - Upper abdominal pain, unspecified
[2024-02-21] MEDS: PANTOprazole 40 MG TAB PO SCH (21:33)
[2024-02-22 07:32] LABS: BUN Creatinine Ratio 14.1 (10-20); Calcium 8.7 mg/dl (8.6-10.3); Creatinine Clr Calc Pharmacy 90.6 ml/min; Est GFR (African American) 99.2 ml/min; Est GFR (Non-African American) 85.6 ml/min; Potassium 3.7 mmol/L (3.5-5.1)
--- NOTE | 2024-02-22 11:03 | Discharge Summary ---
Discharge Summary Date of Service February 22, 2024 Notes For Next Care Provider Patient was hospitalized for acute pancreatitis and stool tested positive for Giardia. She was treated with Nitazoxanide. She was seen and evaluated by GI. She had an upper endoscopy which revealed gastritis. She was prescribed Protonix 40 mg twice daily. It is recommended that she have a colonoscopy as an outpatient. It is also recommended that she have a stool study tested for pancreatic elastase to rule out pancreatic insufficiency. Incidentally her A1c was noted to be 6.7 . Recommend repeat this in 3 to 6 months Medication Changes From Visit Pantoprazole 40 mg by mouth twice daily. Please continue this until you follow- up with your rehabilitation teacher provider. Continue all other medications as prescribed. Admission HPI Per Admitting Provider History obtained from patient and records. Medical history significant for interstitial cystitis, urolithiasis, anx iety/mood disorder, past tobacco abuse. 3 weeks ago, patient had achy epigastric pain associated with nausea vomiting, watery diarrhea symptoms. No fever, no chills. No dysuria symptoms. No recent out-of-town travel or antibiotics. Denies EtOH or fatty food intake. Not responsive to antacid. Patient seen at PCPs office 2 weeks ago. Lipase noted to be elevated on outpatient blood work. Stool workup negative. Patient was told she could have pancreatitis. Patient consulted ER 2 weeks ago for worsening symptoms. Normal pancreas, questionable mild bladder wall thickening on CT imaging. Minimal lipase elevation on blood work. Patient discharged home. Worsening achy abdominal pain following ER visit. Patient sent back to ER after seeing PCP at office today. Medical History as above Surgical History : Tonsillectomy, back surgery, urologic procedures D&C, uvulectomy, appendectomy, clavicle surgery Family History : Ovarian cancer, IBD, ALS Personal/Social history : Past tobacco abuse, occasional EtOH intake, marijuana store employee Admission Exam Per Admitting Provider GENERAL: Slightly uncomfortable, obese, no respiratory distress SKIN: Normal color, warm HEENT: [place] palpebral conjunctivae, no ptosis, dry buccal mucosa NECK : Supple, no tenderness CHEST : CTA, no tenderness HEART : RRR, no obvious murmurs ABDOMEN: Some distention, epigastric tenderness EXTREMITIES : Minimal LE swelling, no LE tenderness, no other conspicuous deformities noted NEUROLOGIC : Coherent, no facial asymmetry, no other gross focality Principal Dx & Hospital Course #1 = Principal Diagnosis (1) Abdominal pain: (2) Acute pancreatitis: (3) Giardia: Plan ? Protracted pancreatitis episode Giardiasis Pt admitted 02/15 with abd pain, nausea, vomiting and watery diarrhea Status post EGD on 02/16 which was positive for gastritis On 02/18 she did test positive for Giardia and completed course of Nitazoxanide She remains on Protonix twice daily She continues to have off-and-on abdominal pain Repeat lipase has been normal Previous KUB did show moderate constipation which resolved status post GoLytely prep MRCP negative for acute pancreatitis GI saw pt - recommended stool for pancreatic elastase to r/o insufficiency gradually advance diet to low fat and tolerating on day of discharge She will need OP Colonoscopy as she has never had initial screening IGG and SHILA screen pending Recommend outpatient stool for pancreatic elastase hx interstitial cystitis anxiety/mood disorder, stable T2DM: A1c 6.7, counseled on diet/exercise, will need close f/u with PCP past tobacco abuse Full code, vitals stable on day of discharge and she is tolerating diet Patient was seen and examined in collaboration with, Dr. Can, please see addendum A total of 40 minutes was spent coordinating, documenting, and providing care for this patient excluding time spent in the performance of separately billed services. This included personally viewing all current laboratories and imaging studies, medication reconciliation, outpatient chart review, and discussion with specialists Discharge Exam Gen: WD/WN, NAD, A&O x3 HEENT: Normocephalic, atraumatic, conjunctivae moist, sclerae anicteric, mucous membranes moist. Lung: Clear to Auscultation bilaterally, no wheezes/rales/rhonchi Heart: Regular rate, regular rhythm, no murmurs, rubs, or gallops Abdomen: Soft, NT, ND +BS x 4 Extremities: No edema Skin: Warm, no rash, negative turgor. Updated Medication List Medication Instructions Recorded Confirmed Type ropinirole 2 mg tablet 4 mg PO HS 02/16/19 02/16/24 History sertraline 100 mg tablet 200 mg PO QAM 02/16/19 02/16/24 History albuterol sulfate 90 mcg/actuation 2 inh inhalation Q4H PRN cough 11/28/23 02/16/24 Rx aerosol inhaler #8.5 grams promethazine 25 mg tablet 25 mg PO Q6H PRN nausea and 02/10/24 02/16/24 Rx vomiting #12 tabs dicyclomine 10 mg capsule 10 mg PO QID PRN Abdominal Pain 02/16/24 02/16/24 History ketorolac 10 mg tablet 10 mg PO QID PRN Moderate Pain 02/16/24 02/16/24 History (Scale Score 5-6) oxycodone 5 mg tablet 5 mg PO Q6H PRN pain #10 tabs 02/22/24 Rx pantoprazole 40 mg tablet,delayed 40 mg PO BID #60 tabs 02/22/24 Rx release Hospital Stay Data Consultations 02/16/24 20:08 ED Decision to Admit Stat 02/16/24 23:55 Consult Gastroenterology Routine Procedures Performed Operation Date: 02/17/24 16:25 Actual Procedures p EGD Biopsy Cytology - Alyson Carpenter DO Diagnostic Imagining Performed Abdomen/Pelvis CT 02/16/24 18:16 Exam(s): CT ABDOMEN + PELVIS With Contrast IV Amt: 90 cc opti 320 EXAM: CT Abdomen and Pelvis With Intravenous Contrast CLINICAL HISTORY: Upper pain abd to back, elevated lipase. TECHNIQUE: Axial computed tomography images of the abdomen and pelvis with intravenous contrast. CTDI is 26.84 mGy and DLP is 1470.67 mGy-cm. Automated exposure control was utilized for the study. A dose lowering technique was utilized adhering to the principles of ALARA. CONTRAST: Patient received 90 cc opti 320 of IV contrast COMPARISON: CT abdomen and pelvis 02/10/2024 FINDINGS: Lung bases: Unremarkable. No mass. No consolidation. ABDOMEN: Liver: There is a simple appearing hepatic cyst, no follow-up is needed. Gallbladder and bile ducts: Unremarkable. No calcified stones. No ductal dilation. Pancreas: Unremarkable. No ductal dilation. No CT evidence of acute pancreatitis. Spleen: Unremarkable. No splenomegaly. Adrenals: Unremarkable. No mass. Kidneys and ureters: Unremarkable. No solid mass. No hydronephrosis. Stomach and bowel: Unremarkable. No obstruction. No mucosal thickening. PELVIS: Appendix: No findings to suggest acute appendicitis. Bladder: Unremarkable. No mass. Reproductive: An IUD is noted within an otherwise unremarkable uterus. ABDOMEN and PELVIS: Intraperitoneal space: Unremarkable. No free air. No significant fluid collection. Bones/joints: There are degenerative changes of the spine. No acute fracture. No dislocation. Soft tissues: Unremarkable. Vasculature: Unremarkable. No abdominal aortic aneurysm. Lymph nodes: Unremarkable. No enlarged lymph nodes. IMPRESSION: No CT evidence of acute pancreatitis. No acute finding. Electronically signed by: Myranda Krishnamurthy MD 02/16/24 19:53 PM Gallbladder Ultrasound 02/16/24 20:38 Exam(s): US GALLBLADDER EXAM: US Abdomen Limited, Gallbladder CLINICAL HISTORY: Reason for exam: abd pain. TECHNIQUE: Real-time ultrasound of the right upper quadrant with image documentation. COMPARISON: None. FINDINGS: Limitations: Exam is limited due to gas artifact in the bowel. Liver: There is mild diffuse increased echogenicity throughout the liver suggestive of fatty infiltration. The liver measures 16.09 cm. The main portal vein reveals hepatopedal flow. Gallbladder: Moody sign is indeterminate due to prior medication. The gallbladder wall measures 2.4 mm. No gallstones. Common bile duct: The common bile duct measures 4.3 mm. No stones. No dilation. Pancreas: The pancreas is obscured. Right kidney: The right kidney measures 9.5 cm. IMPRESSION: Possible mild diffuse fatty liver, otherwise unremarkable right upper quadrant ultrasound. Electronically signed by: Sheri Haji MD 02/16/24 23:11 PM KUB X-Ray 02/18/24 13:36 KUB CLINICAL HISTORY: Abdominal pain. COMPARISON STUDY: CT of the abdomen and pelvis February 16, 2024. FINDINGS: Intrauterine device is noted. The bowel gas pattern is normal. Moderate stool within the colon. No significant stool within the rectum. No urinary calculi are identified. IMPRESSION: No evidence for a bowel obstruction. ACT 112: Negative or not required by law. Electronically signed by: Mannie Reed M.D. 02/18/2024 1:56 PM KUB X-Ray 02/20/24 10:03 XR KUB/Abdomen 1 view CLINICAL HISTORY: persistent abdominal pain TECHNIQUE: 1 view of the abdomen was obtained. Comparison: Comparison is made to chest radiograph 02/18/2024 FINDINGS: Lung bases are unremarkable. Degenerative changes are seen in the visualized skeleton. The bowel gas pattern is nonobstructive. Small stool burden is seen. IMPRESSION: Nonobstructive bowel gas pattern. ACT 112: Negative or not required by law. Electronically signed by: Brandon Liang M.D. 02/20/2024 10:26 AM Cholangiopancreatography MRI 02/20/24 12:54 MRCP CLINICAL HISTORY: Acute pancreatitis. COMPARISON STUDY: Abdominal CT and ultrasound dated 02/16/2024. Abdominal CT dated 04/16/2012. TECHNIQUE: Abdominal MRCP is performed utilizing various T2-weighted sequences in the axial and coronal planes. IV contrast was not administered for this examination. 3-D reformats are created and assessed. Diffusion-weighted imaging was utilized. FINDINGS: No gallstones are identified. The gallbladder is distended but otherwise normal in appearance. There is no intra or extrahepatic biliary ductal dilatation. The common bile duct measures up to 4 mm in diameter. There are no intraluminal filling defects to suggest choledocholithiasis. The pancreatic duct is normal in caliber. An indeterminate 3.8 cm T2 hyperintense lesion in the subcapsular right lobe of the liver is unchanged. This has been present dating back to at least 2011. The unenhanced liver is otherwise normal as visualized. The unenhanced spleen, adrenal glands, kidneys, and pancreas are grossly unremarkable. No peripancreatic inflammation or fluid is identified. There is no abdominal ascites. The abdominal aorta is normal in course and caliber. The imaged bowel loops show no evidence of obstruction. The heart is top normal in size noting trace pericardial effusion. There are also trace pleural effusions. No destructive bony process is identified. IMPRESSION: 1. Normal MRCP. 2. There is no MRI evidence of pancreatitis. 3. Additional findings as above. Dictated: 02/20/2024 6:36 PM Transcribed: 02/20/2024 7:02 PM Kin [id number] [email or web address] Electronically signed by: Matias Solano M.D. 02/20/2024 7:26 PM Pending Results Patient Have Any Pending Studies at Discharge: Yes Discharge Instructions Given to Patient (Per Discharging Provider) MEDICATION CHANGES: Pantoprazole 40 mg by mouth twice daily. Please continue this until you follow- up with your rehabilitation teacher provider. Continue all other medications as prescribed. SUMMARY OF TEST RESULTS: You were admitted to hospital secondary to abdominal pain and an elevated lipase that was tested as outpatient. There was concern for acute pancreatitis without obvious precipitant. You underwent an upper GI endoscopy which revealed that you had inflammation in your stomach. GI is recommending that you take pantoprazole 40 mg twice daily. Please continue taking this until you discuss with them. Your stool tested positive for parasite infection with Giardia. You were treated with a medication for this. Your repeat lipase has been normal. Gradually your diet has been increased with improvement in symptoms. It is recommended that you have an outpatient colonoscopy. Incidentally your blood sugar was mildly elevated during your hospital stay. Your A1c revealed that you have type 2 diabetes. Your A1c was 6.7. PENDING TEST RESULTS: IgG and SHILA screen pending, encourage your primary care provider to follow-up with this. RECOMMENDATIONS FOR FOLLOW-UP: Please follow-up with primary care provider as scheduled. Please keep gastroenterology follow-up to determine further etiology of abdominal pain. Recommend following a low-fat diet and taking diet slow due to abdominal pain. Recommend staying well-hydrated. Gastroenterology is recommending that you have a stool test for pancreatic elastase to rule out pancreatic insufficiency -your primary care provider can order this. Your A1c was elevated at 6.7. Recommend that you further discussion with your primary care provider on ways to improve this with diet and exercise. Recommend daily bowel movements. If you are not able to have a bowel movement daily would encourage increase walking, water intake and you can take an over the counter stool softener to help with this. Changes in your diet may cause a change in your stool habits. It is recommended you have a colonoscopy. Your Wood Last Maker will schedule this. OTHER INSTRUCTIONS: Seek medical attention if you have: * temperature above 101 * chest pain or trouble breathing * abdominal pain, nausea, vomiting * diarrhea, dark stools or bloody stools * any unanswered questions or concerns Call 911 if symptoms are severe. Please take good care of yourself. It has been a pleasure taking care of you. Please take care of yourself. If you have any questions regarding your recent hospitalization please contact [facility] and request Mitzy Kateist @ [phone]. Sheba Mcconnell PA-C Total Time Total Time Spent Total Time Spent (In Minutes): 40 minutes Supervising Physician Co-Signing Physician Notes Patient seen and examined independently. Discussed with above provider. Patient reports resolution of abdominal pain. She reports that she wants to get discharged. She has not required IV Dilaudid since last night. Patient discharged home on low-fat diet. I have reviewed the advanced practitioner's documentation, and I agree with, and take responsibility for the plan of care I spent a total of 15 minutes coordinating, documenting, and providing care for this patient excluding time spent in the performance of separately billed services. All of the aforementioned completed while collaborating with the assigned advanced practitioner for a full treatment plan
[2024-02-22 11:13] LABS: Codeine Urine NEGATIVE ng/mL (<50); Hydrocodone Urine NEGATIVE ng/mL (<50); Hydromor Urine 509 ng/mL (<50); Marijuana Quant, GCMS Urine 2191 ng/mL (<5); Morphine Urine 421 ng/mL (<50); Norhydrocodone Conf Ur NEGATIVE ng/mL (<50); Noroxycodone Urine 53 ng/mL (<50); Oxycodone Urine NEGATIVE ng/mL (<50); Oxymorph Urine 50 ng/mL (<50)
[2024-02-24 00:32] LABS: Anti Nuclear Antibody Screen NEGATIVE (NEGATIVE); Immunoglobulin G 604 mg/dL (600-1640); Immunoglobulin G1 380 mg/dL (382-929); Immunoglobulin G2 163 mg/dL (241-700); Immunoglobulin G3 17 mg/dL (22-178); Immunoglobulin G4 11.2 mg/dL (4.0-86.0)
== END 2024-02-22 13:48 | disposition home or self-care (01) | DRG 371 ==
LOC: 3W 16:32 → ED 16:32 → 3W 23:40 → SUATTDRO 02-17 15:09
DX: Z88.8 Allergy status to other drugs, medicaments and biological substances; Z88.5 Allergy status to narcotic agent; K85.80 Other acute pancreatitis without necrosis or infection; F41.9 Anxiety disorder, unspecified; K59.00 Constipation, unspecified; K76.0 Fatty (change of) liver, not elsewhere classified; R73.9 Hyperglycemia, unspecified; Z80.41 Family history of malignant neoplasm of ovary; F39 Unspecified mood [affective] disorder; A07.1 Giardiasis [lambliasis]; K29.70 Gastritis, unspecified, without bleeding; Z98.1 Arthrodesis status; Z87.891 Personal history of nicotine dependence